=== PATIENT | female | born 1985 | race Caucasian/White ===

== ENCOUNTER 2021-04-28 20:34 | Emergency (ER) | payer MEDICAID, OTHER ==
[~2021-04-28] VITALS: Ht 157 cm; Wt 100.0 kg
[2021-04-28 20:56] LABS: BILIRUBIN,URINE NEGATIVE (NEGATIVE); CLARITY,URINE CLEAR; COLOR,URINE YELLOW; GLUCOSE, URINE (UA) NEGATIVE (NEGATIVE); KETONES,URINE NEGATIVE (NEGATIVE); LEUKOCYTE ESTERASE ,URINE NEGATIVE (NEGATIVE); NITRITE,URINE NEGATIVE (NEGATIVE); PH,URINE 6.5 (5-9); PROTEIN,URINE NEGATIVE (NEGATIVE)
[2021-04-28] MEDS ORDERED: ANTACID SUSP 30 ML UDC (MYLANTA) PO ONE (21:00)
[2021-04-28] MEDS ORDERED: ONDANSETRON 4 MG/2 ML (SDV) Z0FRAN IVP ONE (21:00)
[2021-04-28] MEDS ORDERED: LIDOCAINE 2% VISCOUS 15 ML UDC PO ONE (21:00)
[2021-04-28] MEDS ORDERED: FAMOTIDINE 20 MG (PEPCID) TABLET PO STA (21:00)
[2021-04-28] MEDS ORDERED: LACTATED RINGERS 1,000 ML IV STA (21:00)
--- NOTE | 2021-04-28 21:06 | ED Cough/URI ---
General Chief Complaint: Abdominal/GI Problems Stated Complaint: COUGH/CONGESTION ABD PAIN Source: patient Exam Limitations: no limitations History of Present Illness Date Seen by Provider: Apr 28, 2021 Time Seen by Provider: 20:45 Initial Comments The patient presents to the ER with her significant other and chief complaint that for 1 week she has had a cough, malaise, body aches. She has had decreased appetite but no sore throat diarrhea dysuria. The last 3 days she has had a little epigastric abdominal discomfort and nausea but no vomiting. She is taken some Tylenol and antacids which did give mild relief for a short time. She has no history of abdominal surgeries outside of a cholecystectomy. She just got off her menses 2 days ago. She is not on control. She has not been to any office to be tested for Covid or flu. She denies having a vaccine for COVID-19 or influenza. She has a history of psychiatric issues but no significant medical history. She smokes about half a pack of cigarettes per day and denies any history of lung disease. Allergies and Home Medications Allergies Coded Allergies: cephalexin (Unverified Allergy, Unknown, swelling all over, 04/28/21) Patient Home Medication List Home Medication List Reviewed: Yes Review of Systems Review of Systems Constitutional: No chills, No fever EENTM: No ear discharge, No hearing loss Respiratory: cough; No phlegm; short of breath; No wheezing Cardiovascular: No chest pain, No edema Gastrointestinal: abdominal pain; No constipation, No diarrhea, No dysphagia; nausea; No vomiting Genitourinary: No discharge, No dysuria Musculoskeletal: No back pain All Other Systems Reviewed Negative Unless Noted: Yes Past Edmxcjp-Wrkjju-Zncscw Hx Patient Social History Tobacco Use?: Yes Tobacco type used: Cigarettes Smoking Status: Current Everyday Smoker Smokeless Tobacco Frequency: Current Everyday User Use of E-Cig and/or Vaping dev: No Substance use?: No Physical Exam Vital Signs - First Documented 04/28/21 20:44 Temp 36.1 Pulse 82 Resp 18 B/P (MAP) 143/93 (110) Pulse Ox 98 O2 Delivery Room Air Capillary Refill : Height: '" Weight: lbs. oz. kg; BMI Method: General Appearance: WD/WN, no apparent distress Eyes: Bilateral Eye Normal Inspection, Bilateral Eye PERRL, Bilateral Eye EOMI HEENT: PERRL/EOMI, normal ENT inspection, TMs normal; No pharynx normal (Dry oral mucosa with mild retropharyngeal erythema but no exudate or tonsillar swelling or edema.) Neck: non-tender, full range of motion, supple, normal inspection, lymphadenopathy (R), lymphadenopathy (L) (Bilateral anterior cervical lymphadenopathy, shotty in nature) Respiratory: lungs clear, no respiratory distress, no accessory muscle use, other (Diminished breath sounds) Cardiovascular: normal peripheral pulses, regular rate, rhythm, no murmur Gastrointestinal: normal bowel sounds, soft, tenderness (Epigastric and left upper quadrant abdomen tenderness easily reproducible to light palpation.) Neurologic/Psychiatric: alert, normal mood/affect, oriented x 3 Skin: normal color, warm/dry Progress/Results/Core Measures Suspected Sepsis SIRS Temperature: Pulse: Respiratory Rate: Laboratory Tests 04/28/21 21:14: White Blood Count 9.5 Blood Pressure / Mean: Laboratory Tests 04/28/21 21:14: Creatinine 0.69, Platelet Count 285, Total Bilirubin 0.2 Results/Orders Lab Results Laboratory Tests Test 04/28/21 20:50 04/28/21 20:53 04/28/21 21:14 Range/Units Urine Color YELLOW Urine Clarity CLEAR Urine pH 6.5 5-9 Urine Specific [place] 1.020 1.016-1.022 Urine Protein NEGATIVE NEGATIVE Urine Glucose (UA) NEGATIVE NEGATIVE Urine Ketones NEGATIVE NEGATIVE Urine Nitrite NEGATIVE NEGATIVE Urine Bilirubin NEGATIVE NEGATIVE Urine Urobilinogen 0.2 < = 1.0 MG/DL Urine Leukocyte Esterase NEGATIVE NEGATIVE Urine RBC (Auto) NEGATIVE NEGATIVE Urine RBC NONE /HPF Urine WBC 0-2 /HPF Urine Crystals PRESENT H /LPF Urine Amorphous Sediment MOD GER URATES H /LPF Urine Bacteria TRACE /HPF Urine Casts NONE /LPF Urine Mucus NEGATIVE /LPF Urine Culture Indicated NO Influenza Type A Antigen NEGATIVE NEGATIVE Influenza Type B Antigen NEGATIVE NEGATIVE SARS-CoV-2 RNA (RT-PCR) Not Detected Negative White Blood Count 9.5 4.3-11.0 10^3/uL Red Blood Count 4.47 3.80-5.11 10^6/uL Hemoglobin 13.2 11.5-16.0 g/dL Hematocrit 39 35-52 % Mean Corpuscular Volume 87 80-99 fL Mean Corpuscular Hemoglobin 30 25-34 pg Mean Corpuscular Hemoglobin Concent 34 32-36 g/dL Red Cell Distribution Width 12.1 10.0-14.5 % Platelet Count 285 130-400 10^3/uL Mean Platelet Volume 9.8 9.0-12.2 fL Immature Granulocyte % (Auto) 0 % Neutrophils (%) (Auto) 46 42-75 % Lymphocytes (%) (Auto) 42 12-44 % Monocytes (%) (Auto) 8 0-12 % Eosinophils (%) (Auto) 3 0-10 % Basophils (%) (Auto) 1 0-10 % Neutrophils # (Auto) 4.4 1.8-7.8 10^3/uL Lymphocytes # (Auto) 4.0 1.0-4.0 10^3/uL Monocytes # (Auto) 0.7 0.0-1.0 10^3/uL Eosinophils # (Auto) 0.3 0.0-0.3 10^3/uL Basophils # (Auto) 0.1 0.0-0.1 10^3/uL Immature Granulocyte # (Auto) 0.0 0.0-0.1 10^3/uL Sodium Level 141 135-145 MMOL/L Potassium Level 3.7 3.6-5.0 MMOL/L Chloride Level 110 H 98-107 MMOL/L Carbon Dioxide Level 22 21-32 MMOL/L Anion Gap 9 5-14 MMOL/L Blood Urea Nitrogen 9 7-18 MG/DL Creatinine 0.69 0.60-1.30 MG/DL Estimat Glomerular Filtration Rate 97 BUN/Creatinine Ratio 13 Glucose Level 106 H 70-105 MG/DL Calcium Level 8.7 8.5-10.1 MG/DL Corrected Calcium 9.0 8.5-10.1 MG/DL Total Bilirubin 0.2 0.1-1.0 MG/DL Aspartate Amino Transf (AST/SGOT) 13 5-34 U/L Alanine Aminotransferase (ALT/SGPT) 24 0-55 U/L Alkaline Phosphatase 74 40-136 U/L C-Reactive Protein High Sensitivity 0.05 0.00-0.50 MG/DL Total Protein 6.3 L 6.4-8.2 GM/DL Albumin 3.6 3.2-4.5 GM/DL My Orders Orders - TOD SCHULER Ua Culture If Indicated (04/28/21 20:48) Urine Bedside (04/28/21 20:48) Covid 19 Inhouse Test (04/28/21 20:48) Ondansetron Injection (Zofran Injectio (04/28/21 21:00) Lidocaine 2% Viscous 15 Ml (Xylocaine Vi (04/28/21 21:00) Famotidine Tablet (Pepcid Tablet) (04/28/21 21:00) Antacid Suspension (Mylanta Suspension (04/28/21 21:00) Lactated Ringers (Lr 1000 Ml Iv Solution (04/28/21 21:00) Chest 1 View, Ap/Pa Only (04/28/21 21:00) Cbc With Automated Diff (04/28/21 21:00) Comprehensive Metabolic Panel (04/28/21 21:00) Hs C Reactive Protein (04/28/21 21:00) Influenza A & B Antigens (04/28/21 20:53) Coronavirus Sars-Cov-2 So 2018 (04/28/21 20:53) Medications Given in ED Current Medications Medications Dose Ordered Sig/Navdeep Route Start Time Stop Time Status Last Admin Dose Admin Al Hydrox/Mg Hydrox/Simethicone 30 ml ONCE ONCE PO 04/28/21 21:00 04/28/21 21:02 DC 04/28/21 21:07 30 ML Lidocaine HCl 15 ml ONCE ONCE PO 04/28/21 21:00 04/28/21 21:02 DC 04/28/21 21:07 15 ML Ondansetron HCl 8 mg ONCE ONCE IVP 04/28/21 21:00 04/28/21 21:02 DC 04/28/21 21:20 8 MG Vital Signs/I&O 04/28/21 20:44 Temp 36.1 Pulse 82 Resp 18 B/P (MAP) 143/93 (110) Pulse Ox 98 O2 Delivery Room Air Capillary Refill : Progress Note #1: Time: 21:03 Progress Note Aseptic vital signs per nursing. Plan to draw some labs give her a GI cocktail liter of fluids for her mild dehydration and test her for Covid and influenza. Chest x-ray she has some diminished lung sounds but no adventitious lung sounds. I suspect that she has a viral upper respiratory tract infection possibly making his way to gastroenteritis versus just gastritis. We will give her some Zofran and Pepcid. Progress Note #2: Time: 22:17 Progress Note The patient has experienced no material deterioration during her ER stay. She says her nausea is gone she is feeling better after the fluids. He is ready to go home. We have suggested she take some antacids and acid reducers as well as give her a prescription for some nausea medicines and wait this out as it is likely viral. Diagnostic Imaging Diagonstic Imaging: Xray Plain Films/CT/US/NM/MRI: chest Comments NAME: SAI [facility] REC#: [id number] PT STATUS: REG ER : 1985 PHYSICIAN: TOD SCHULER MD ADMIT DATE: 04/28/21/ER Draft Date of Exam:04/28/21 CHEST 1 VIEW, AP/PA ONLY CLINICAL INDICATION: Patient with cough. EXAM: Portable chest x-ray upright view. COMPARISON: None. FINDINGS: Lungs/pleura: Lungs are clear. There is no pneumothorax. There is no pleural effusion. Mediastinum: Unremarkable. Pulmonary vasculature: Unremarkable. Heart: Unremarkable. Bones/extrathoracic soft tissue: There are small degenerative spurs involving the thoracic spine. IMPRESSION: There is no radiographic evidence of acute cardiopulmonary process. Dictated on workstation # [id number] Dict: 04/28/212119 Trans: 04/28/212130 [facility] [id number] Interpreted by: FREEMAN CONNELL MD Electronically signed by: Reviewed: Reviewed by Me Departure Impression Primary Impression: Viral upper respiratory tract infection Additional Impressions: Gastroenteritis Gastritis Qualified Codes: K29.00 - Acute gastritis without bleeding Disposition: HOME, SELF-CARE Condition: Stable Departure-Patient Inst. Decision time for Depature: 22:18 Patient Instructions: Gastritis ED, Upper Respiratory Infection ED Add. Discharge Instructions: You likely have a virus that is leading to your cough, nasal congestion and nausea as well as stomach pain. Start taking Pepcid 20 mg twice a day until your stomach pain and symptoms resolved. This will reduce how much acid your stomach produces. If you have breakthrough episodes of stomach pain you can use Tums, Maalox, Mylanta, Gaviscon, Rolaids etc. as necessary. Fever or body aches can be treated with Tylenol 1000 mg every 8 hours as necessary. Avoid acid rich foods such as tomatoes, orange juice etc. If you have nausea or vomiting then take 1 tablet of Zofran under the tongue every 6 hours as necessary. All discharge instructions reviewed with patient and/or family. Voiced understanding. Scripts Famotidine (Pepcid) 20 Mg Tablet 20 MG PO BID for 14 Days, #28 TAB 0 Refills Prov: TOD SCHULER 04/28/21 Ondansetron (Ondansetron Odt) 4 Mg Tab.rapdis 4 MG PO Q6H PRN for NAUSEA/VOMITING, #8 TAB 0 Refills Prov: TOD SCHULER 04/28/21 TOD SCHULER Apr 28, 2021 21:06
[2021-04-28 21:07] LABS: BACTERIA,URINE TRACE /HPF; WBC,URINE 0-2 /HPF
[2021-04-28 21:08] LABS: AMORPHOUS SEDIMENT,UR MOD AMOR URATES /LPF
[2021-04-28 21:24] LABS: BASOPHILS # (AUTO) 0.1 10^3/uL (0.0-0.1); BASOPHILS % (AUTO) 1 % (0-10); EOSINOPHILS # (AUTO) 0.3 10^3/uL (0.0-0.3); EOSINOPHILS % (AUTO) 3 % (0-10); HEMATOCRIT 39 % (35-52); HEMOGLOBIN 13.2 g/dL (11.5-16.0); LYMPHOCYTES % (AUTO) 42 % (12-44); MEAN CORPUSCULAR HEMOGLOBIN 30 pg (25-34); MEAN CORPUSCULAR HGB CONC 34 g/dL (32-36); MEAN CORPUSCULAR VOLUME 87 fL (80-99); MEAN PLATELET VOLUME 9.8 fL (9.0-12.2); MONOCYTES # (AUTO) 0.7 10^3/uL (0.0-1.0); MONOCYTES % (AUTO) 8 % (0-12); NEUTROPHILS # (AUTO) 4.4 10^3/uL (1.8-7.8); NEUTROPHILS % (AUTO) 46 % (42-75); PLATELET COUNT 285 10^3/uL (130-400); WHITE BLOOD COUNT 9.5 10^3/uL (4.3-11.0)
--- NOTE | 2021-04-28 21:33 | Diagnostic Imaging Report ---
CLINICAL INDICATION: Patient with cough. EXAM: Portable chest x-ray upright view. COMPARISON: None. FINDINGS: Lungs/pleura: Lungs are clear. There is no pneumothorax. There is no pleural effusion. Mediastinum: Unremarkable. Pulmonary vasculature: Unremarkable. Heart: Unremarkable. Bones/extrathoracic soft tissue: There are small degenerative spurs involving the thoracic spine. IMPRESSION: There is no radiographic evidence of acute cardiopulmonary process. Dictated by: Dictated on workstation # [id number]
[2021-04-28 21:42] LABS: ALBUMIN 3.6 GM/DL (3.2-4.5); POTASSIUM 3.7 MMOL/L (3.6-5.0)
[2021-04-28 21:43] LABS: CALCIUM 8.7 MG/DL (8.5-10.1)
[2021-04-28 21:45] LABS: TOTAL PROTEIN 6.3 GM/DL (6.4-8.2)
[2021-04-28 21:46] LABS: BILIRUBIN,TOTAL 0.2 MG/DL (0.1-1.0)
[2021-04-28 21:48] LABS: CREATININE SERUM 0.69 MG/DL (0.60-1.30)
[2021-04-28] MEDS ORDERED: RX-ONDANSETRON 4 MG ODT (ZOFRAN) PPK #4 PO STA (22:16)
[2021-04-28] MEDS ORDERED: RX-FAMOTIDINE 20 MG (PEPCID) TAB PPK#2 PO STA (22:16)
[2021-04-28] MEDS ORDERED: FAMO-119 PO (22:20)
[2021-04-28] MEDS ORDERED: ONDA4TAB11 PO (22:20)
[2021-04-28 22:40] VITALS: BP 140/91
== END 2021-04-28 22:40 | disposition home or self-care (01) ==
LOC: ER 20:38
DX: J06.9 Acute upper respiratory infection, unspecified (principal); K52.9 Noninfective gastroenteritis and colitis, unspecified; K29.70 Gastritis, unspecified, without bleeding; F17.210 Nicotine dependence, cigarettes, uncomplicated; Z20.822 Contact with and (suspected) exposure to COVID-19
CPT/HCPCS: 36415; 71045; 80053; 81000; 84703; 85025; 86141; 87635; 87636; 87804

== ENCOUNTER 2021-11-16 19:17 | Emergency (ER) | payer MEDICAID ==
[~2021-11-16 19:17] MED LIST: FAMO-119 PO; ONDA4TAB11 PO
[2021-11-16 19:28] VITALS: BP 164/94
--- NOTE | 2021-11-16 19:40 | ED Abdominal Pain ---
General Chief Complaint: Abdominal/GI Problems Stated Complaint: LUMP IN ABD Nursing Triage Note: PT PRESENTS WITH C/O "LUMP" IN HER LOWER ABD. REPORTS SHE FIRST NOTICED THE LUMP THREE WEEKS AGO. REPORTS THE AREA IS TENDER TO THE TOUCH. DENIES N/V/D Source of Information: Patient Exam Limitations: No Limitations History of Present Illness Date Seen by Provider: Nov 16, 2021 Time Seen by Provider: 19:20 Initial Comments Patient to the ER by private conveyance with her significant other chief complaint that for the past several days she been noticing some pain and a defect in the middle of her abdomen below the umbilicus. She has no problems with bowel movements diarrhea fevers chills nausea vomiting. Allergies and Home Medications Allergies Coded Allergies: cephalexin (Unverified Allergy, Unknown, swelling all over, 04/28/21) Patient Home Medication List Home Medication List Reviewed: Yes Famotidine (Pepcid) 20 Mg Tablet, 20 MG PO BID Prescribed by: TOD SCHULER on 04/28/212219 Ondansetron (Ondansetron Odt) 4 Mg Tab.rapdis, 4 MG PO Q6H PRN for NAUSEA /VOMITING Prescribed by: TOD SCHULER on 04/28/212219 Review of Systems Review of Systems Constitutional: No chills, No diaphoresis EENTM: No Blurred Vision, No Double Vision Respiratory: Denies Cough, Denies Shortness of Air Cardiovascular: Denies Chest Pain, Denies Lightheadedness Gastrointestinal: Denies Constipated, Denies Vomiting Genitourinary: Denies Drainage, Denies Frequency All Other Systems Reviewed Negative Unless Noted: Yes Past Ymtxskw-Jbjsfb-Ubnswz Hx Patient Social History Tobacco Use?: Yes Smoking Status: Current Everyday Smoker Substance use?: No Alcohol Use?: Yes Alcohol Frequency: Once in a while Pt feels they are or have been: No Immunizations Up To Date Influenza Vaccine Up-to-Date: No; Not Current Past Medical History Surgery/Hospitalization HX: ANXIETY, INSOMNIA Last Menstrual Period: Nov 09, 2021 Physical Exam Vital Signs Vital Signs - First Documented 11/16/21 19:28 Pulse 91 Resp 18 B/P (MAP) 164/94 (117) Pulse Ox 98 Capillary Refill : Height/Weight/BMI Height: '" Weight: lbs. oz. kg; 40.00 BMI Method: General Appearance: WD/WN, no apparent distress HEENT: PERRL/EOMI, normal ENT inspection, pharynx normal Neck: full range of motion, supple, normal inspection Respiratory: lungs clear, normal breath sounds, no respiratory distress, no accessory muscle use Cardiovascular: normal peripheral pulses, regular rate, rhythm Peripheral Pulses: 2+ Radial Pulses (R), 2+ Radial Pulses (L) Gastrointestinal: normal bowel sounds, non tender, soft, no organomegaly, other Extremities: normal range of motion, non-tender, normal capillary refill Neurologic/Psychiatric: alert, normal mood/affect, oriented x 3 Progress/Results/Core Measures Results/Orders Vital Signs/I&O 11/16/21 19:28 Pulse 91 Resp 18 B/P (MAP) 164/94 (117) Pulse Ox 98 Blood Pressure Mean: 117 Progress Progress Note : Time: 19:38 Progress Note Patient apparently has a ventral hernia which is small, nonincarcerated and easily reducible. She has a little ventral diastases and will recommend her to general surgery. Nonacute surgical abdomen. Departure Impression Primary Impression: Ventral hernia without obstruction or gangrene Disposition: 01 HOME, SELF-CARE Condition: Stable Departure-Patient Inst. Decision time for Depature: 19:39 Referrals: ANGEL SPIVEY,LOCAL PHYSICIAN (PCP) Primary Care Physician Patient Instructions: Abdominal Hernia (DC), Hernia Repair (DC) Add. Discharge Instructions: You need to follow-up with a general surgeon to discuss appropriate management. Eat plenty of fiber and drink plenty of fluids. Return to the nearest ER if you are experiencing intractable pain, inability to pass a bowel movement or other worrisome symptoms. All discharge instructions reviewed with patient and/or family. Voiced understanding. Copy Copies To 1: ANGEL SPIVEY TITUS J Nov 16, 2021 19:40
== END 2021-11-16 19:45 | disposition home or self-care (01) ==
LOC: EDUNIT# 19:17 → ER 19:20
DX: K43.9 Ventral hernia without obstruction or gangrene (principal); Z28.310 Unvaccinated for COVID-19
CPT/HCPCS: 99281

== ENCOUNTER 2022-01-18 00:03 | Emergency (ER) | payer MEDICAID ==
[~2022-01-18] VITALS: Ht 155 cm; Wt 102.5 kg
[2022-01-18 00:06] VITALS: BP 147/90
[2022-01-18] MEDS ORDERED: LITH300T3 (00:15)
[2022-01-18] MEDS ORDERED: HYDR50TA76 (00:15)
[2022-01-18] MEDS ORDERED: SERT-414 (00:15)
[2022-01-18] MEDS ORDERED: GABA800T10 (00:15)
[2022-01-18] MEDS ORDERED: LURA40TA2 (00:15)
[2022-01-18] MEDS ORDERED: MIRT7.5T8 (00:15)
[2022-01-18] MEDS ORDERED: PRAZ1CAP2 (00:15)
[2022-01-18] MEDS ORDERED: BUSP15TA60 (00:15)
--- NOTE | 2022-01-18 00:24 | ED Lower Extremity ---
General Chief Complaint: Lower Extremity Stated Complaint: RT ANKLE PAIN,POPPED TUESDAY Source: patient History of Present Illness Date Seen by Provider: Jan 18, 2022 Time Seen by Provider: 00:14 Initial Comments PT ARRIVES ON HER OWN C/O RIGHT ANKLE PAIN AND SWELLING STATES SHE IN [place] ON Tuesday01/15/22, PUTTING GAS IN HER CAR, AND TRIPPED OVER THE GAS HOSE, AND TWISTED HER RIGHT ANKLE WENT TO [facility] AND HAD XRAYS DONE AND SUPA WRAP PLACED--WAS TOLD NOTHING WAS BROKEN. NO RX GIVEN STATES HER ANKLE STILL HURTS AND IS STILL SWOLLEN SO SHE CAME HERE TONIGHT PT HAS NOT PUT ICE ON IT OR ELEVATED IT TOOK 1 TYLENOL AT 2000 TONIGHT--NO RELIEF NO PARESTHESIAS OR MOTOR DEFICITS NO PRIOR INJURIES OR SURGERIES TO THIS FOOT/ANKLE PT IS HOMELESS, IS NORMALLY IN [place]. STATES SHE IS "JUST STAYING HERE IN [place] FOR NOW" LMP 01/06/22. NORMAL. NO CONTROL PCP: SEES SOMEONE IN [place] Allergies and Home Medications Allergies Coded Allergies: cephalexin (Unverified Allergy, Unknown, swelling all over, 04/28/21) Patient Home Medication List Home Medication List Reviewed: Yes Buspirone HCl (Buspirone HCl) 15 Mg Tablet, (Reported) Entered as Reported by: TIFFANY ROBLEDO on 01/18/2214 Last Action: New Order Gabapentin (Gabapentin) 800 Mg Tablet, (Reported) Entered as Reported by: TIFFANY ROBLEDO on 01/18/2214 Last Action: New Order Hydroxyzine HCl (Hydroxyzine HCl) 50 Mg Tablet, (Reported) Entered as Reported by: TIFFANY ROBLEDO on 01/18/2214 Last Action: New Order [place] Carbonate ([place] Carbonate) 300 Mg Tablet, (Reported) Entered as Reported by: TIFFANY ROBLEDO on 01/18/2214 Last Action: New Order Lurasidone HCl (Latuda) 40 Mg Tablet, (Reported) Entered as Reported by: TIFFANY ROBLEDO on 01/18/2214 Last Action: New Order Mirtazapine (Mirtazapine) 7.5 Mg Tablet, (Reported) Entered as Reported by: TIFFANY ROBLEDO on 01/18/2214 Last Action: New Order Naproxen (Naproxen) 500 Mg Tablet.dr, 500 MG PO BID Prescribed by: CHLOE OCHOA on 01/18/2227 Prazosin HCl (Prazosin HCl) 1 Mg Capsule, (Reported) Entered as Reported by: TIFFANY ROBLEDO on 01/18/2214 Last Action: New Order Sertraline HCl (Sertraline HCl) 100 Mg Tablet, (Reported) Entered as Reported by: TIFFANY ROBLEDO on 01/18/2214 Last Action: New Order Discontinued Medications Famotidine (Pepcid) 20 Mg Tablet, 20 MG PO BID Discontinued Reason: No Longer Taking Prescribed by: TOD SCHULER on 04/28/212219 Last Action: Discontinued Ondansetron (Ondansetron Odt) 4 Mg Tab.rapdis, 4 MG PO Q6H PRN for NAUSEA/VOMITING Discontinued Reason: No Longer Taking Prescribed by: TOD SCHULER on 04/28/212219 Last Action: Discontinued Review of Systems Constitutional: no symptoms reported LMP: Jan 06, 2022 Control/STD Prophylaxis: None Musculoskeletal: see HPI Skin: no symptoms reported Psychiatric/Neurological: No Symptoms Reported Past Wexgbeq-Kelxdj-Yulvui Hx Patient Social History Tobacco Use?: Yes Tobacco type used: Cigarettes Smoking Status: Current Everyday Smoker Substance use?: No Alcohol Use?: No Pt feels they are or have been: No Immunizations Up To Date First/Initial COVID19 Vaccinat: x1 Past Medical History Surgery/Hospitalization HX: ANXIETY, INSOMNIA, bipolar, borderline personality disorder. c-sect x2, dental, cholecystectomy Surgeries: Yes Section, Gallbladder Respiratory: No Cardiac: No Neurological: No : No Genitourinary: No Gastrointestinal: No Musculoskeletal: No Endocrine: No HEENT: Yes (DENTAL ISSUES) Cancer: No Psychosocial: Yes Anxiety, Bipolar, Personality Disorder, Depression Physical Exam Vital Signs Vital Signs - First Documented 01/18/22 00:06 Temp 37.2 Pulse 87 Resp 16 B/P (MAP) 147/90 (109) Pulse Ox 99 O2 Delivery Room Air Capillary Refill : Height, Weight, BMI Height: '" Weight: lbs. oz. kg; 40.00 BMI Method: General Appearance: WD/WN, no apparent distress, obese, other (HAIR DYED A DARK PURPLE COLOR) Legs: right leg normal inspection Knees: right knee normal inspection Ankles: right ankle bone tenderness, right ankle limited range of motion, right ankle pain, right ankle soft tissue tenderness, right ankle swelling, right ankle other (LATERAL MALLEOLUS. NO BRUISING. DISTAL MOTOR/SENSORY/VASCULAR INTACT. 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, no motor/sensory deficits, alert, normal mood/affect, oriented x 3 Skin: normal color, warm/dry, tattoos/piercings (TATTOOS) Procedures/Interventions Splinting and Joint Reduction : Pre-Proc Neuro Vasc Exam: normal Post-Proc Neuro Vasc Exam: normal Supa wrap: Yes Splints: Air Stirrup [place] Progress/Results/Core Measures Results/Orders My Orders Orders - CHLOE OCHOA DO Ankle, Right, 3 Views (01/18/22 00:13) Rx-Naproxen (Rx-Naprosyn) (01/18/22 00:29) Gel Ankle Brace (01/18/22 00:32) Vital Signs/I&O 01/18/22 00:06 Temp 37.2 Pulse 87 Resp 16 B/P (MAP) 147/90 (109) Pulse Ox 99 O2 Delivery Room Air Diagnostic Imaging Comments XRAYS RIGHT ANKLE--NO ACUTE PROCESS, PENDING RADIOLOGIST REVIEW Reviewed: Reviewed by Me Departure Impression Primary Impression: Right ankle sprain Disposition: 01 HOME, SELF-CARE Condition: Stable Departure-Patient Inst. Decision time for Depature: 00:25 Referrals: NO,LOCAL PHYSICIAN (PCP) Primary Care Physician TERRY MAGAÑA MD Patient Instructions: Acute Pain, Adult (DC), How to Use an Elastic Bandage, Splint Care ED Add. Discharge Instructions: SUPA WRAP NEEDED FOR PAIN AND SWELLING ANKLE SPLINT NEEDED FOR PAIN AND SWELLING ICE TO AREA AT 20 MINUTE INTERVALS ELEVATE FOOT MUCH POSSIBLE FOLLOW UP WITH DR. MAGAÑA, ORTHOPEDIC SURGEON, IN 1 WEEK FOR FURTHER CARE. All discharge instructions reviewed with patient and/or family. Voiced understanding. Scripts Naproxen (Naproxen) 500 Mg Tablet. 500 MG PO BID, #20 TAB Prov: CHLOE OCHOA DO 01/18/22 CHLOE OCHOA DO Jan 18, 2022 00:24
[2022-01-18] MEDS ORDERED: NAPR500T8 PO (00:28)
[2022-01-18] MEDS ORDERED: RX-NAPROXEN (NAPROSYN) 250 MG TAB PPK#4 PO STA (00:29)
--- NOTE | 2022-01-18 07:07 | Diagnostic Imaging Report ---
INDICATION: Injury, pain. EXAMINATION: Right ankle 01/18/2022. FINDINGS: 3 views of the ankle. FINDINGS: There is no evidence for an acute fracture or dislocation. The joint spaces are well maintained. There is no significant soft tissue swelling. IMPRESSION: No acute process. Of note not mentioned in body report there is a vague lucency at the base of the 5th metatarsal which has the appearance of likely nutrient foramen. If there is point tenderness 7-10 day follow-up recommended. Dictated by: Dictated on workstation # [id number]
== END 2022-01-18 00:34 | disposition home or self-care (01) ==
LOC: EDUNIT# 00:03 → ER 00:07
DX: S93.401A Sprain of unspecified ligament of right ankle, initial encounter (principal); F17.210 Nicotine dependence, cigarettes, uncomplicated; Z28.311 Partially vaccinated for COVID-19; X50.1XXA Overexertion from prolonged static or awkward postures, initial encounter
CPT/HCPCS: 73610; 99282; L4350

== ENCOUNTER 2022-06-01 00:30 | Emergency (ER) | payer MEDICAID ==
[~2022-06-01 00:30] MED LIST changes: +BUSP15TA60; +GABA800T10; +HYDR50TA76; +LITH300T3; +LURA40TA2; +MIRT7.5T8; +NAPR500T8 PO; +PRAZ1CAP2; +SERT-414
[2022-06-01] MEDS ORDERED: KETOROLAC 30 MG/ML VIAL IVP ONE (01:15)
[2022-06-01 01:46] LABS: MEAN PLATELET VOLUME 10.7 fL (9.0-12.2)
[2022-06-01 01:48] LABS: BASOPHILS # (AUTO) 0.1 10^3/uL (0.0-0.1); BASOPHILS % (AUTO) 1 % (0-10); EOSINOPHILS # (AUTO) 0.5 10^3/uL (0.0-0.3); EOSINOPHILS % (AUTO) 4 % (0-10); HEMATOCRIT 42 % (35-52); LYMPHOCYTES # (AUTO) 3.6 10^3/uL (1.0-4.0); LYMPHOCYTES % (AUTO) 31 % (12-44); MEAN CORPUSCULAR HEMOGLOBIN 29 pg (25-34); MEAN CORPUSCULAR HGB CONC 34 g/dL (32-36); MEAN CORPUSCULAR VOLUME 87 fL (80-99); MONOCYTES % (AUTO) 8 % (0-12); NEUTROPHILS # (AUTO) 6.7 10^3/uL (1.8-7.8); NEUTROPHILS % (AUTO) 56 % (42-75); PLATELET COUNT 266 10^3/uL (130-400); WHITE BLOOD COUNT 11.9 10^3/uL (4.3-11.0)
[2022-06-01 01:49] LABS: ALBUMIN 3.9 GM/DL (3.2-4.5)
[2022-06-01 01:50] LABS: POTASSIUM 4.7 MMOL/L (3.6-5.0)
[2022-06-01 01:51] LABS: PROTHROMBIN TIME PATIENT 13.2 SEC (12.2-14.7)
[2022-06-01 01:52] LABS: TOTAL PROTEIN 7.3 GM/DL (6.4-8.2)
[2022-06-01 01:54] LABS: BILIRUBIN,TOTAL 0.3 MG/DL (0.1-1.0)
[2022-06-01 01:56] LABS: CREATININE SERUM 0.68 MG/DL (0.60-1.30)
--- NOTE | 2022-06-01 02:34 | ED Chest Pain ---
General Chief Complaint: Chest Pain Stated Complaint: SOB,CP Nursing Triage Note: TO ED VIA [facility] WITH C/O SOA, CP, ANXIETY. HX ANXIETY, BIPOLAR. PER EMS PT HAS HAD A STRESSFUL DAY AND WAS TOLD BY HER MOTHER THAT SHE WASN'T GOING TO GIVE HER CHILDREN BACK TO HER. Source: patient Exam Limitations: no limitations Allergies and Home Medications Allergies Coded Allergies: cephalexin (Unverified Allergy, Unknown, swelling all over, 04/28/21) Patient Home Medication List Buspirone HCl (Buspirone HCl) 15 Mg Tablet, (Reported) Entered as Reported by: TIFFANY ROBLEDO on 01/18/2214 Gabapentin (Gabapentin) 800 Mg Tablet, (Reported) Entered as Reported by: TIFFANY ROBLEDO on 01/18/2214 Hydroxyzine HCl (Hydroxyzine HCl) 50 Mg Tablet, (Reported) Entered as Reported by: TIFFANY ROBLEDO on 01/18/2214 [place] Carbonate ([place] Carbonate) 300 Mg Tablet, (Reported) Entered as Reported by: TIFFANY ROBLEDO on 01/18/2214 Lurasidone HCl (Latuda) 40 Mg Tablet, (Reported) Entered as Reported by: TIFFANY ROBLEDO on 01/18/2214 Mirtazapine (Mirtazapine) 7.5 Mg Tablet, (Reported) Entered as Reported by: TIFFANY ROBLEDO on 01/18/2214 Naproxen (Naproxen) 500 Mg Tablet.dr, 500 MG PO BID Prescribed by: CHLOE OCHOA on 01/18/2227 Prazosin HCl (Prazosin HCl) 1 Mg Capsule, (Reported) Entered as Reported by: TIFFANY ROBLEDO on 01/18/2214 Sertraline HCl (Sertraline HCl) 100 Mg Tablet, (Reported) Entered as Reported by: TIFFANY ROBLEDO on 01/18/2214 Past Smznfgg-Wnjwiw-Oglqai Hx Patient Social History Tobacco Use?: Yes Smoking Status: Current Everyday Smoker Substance use?: No Alcohol Use?: No Immunizations Up To Date Influenza Vaccine Up-to-Date: No; Not Current First/Initial COVID19 Vaccinat: x1 Second COVID19 Vaccination Arcenio: x1 Third COVID19 Vaccination Date: x1 Past Medical History Surgery/Hospitalization HX: ANXIETY, INSOMNIA, bipolar, borderline personality disorder. c-sect x2, dental, cholecystectomy Surgeries: Yes Section, Gallbladder Respiratory: No Cardiac: No Neurological: No Genitourinary: No Gastrointestinal: No Musculoskeletal: No Endocrine: No HEENT: Yes (DENTAL ISSUES) Cancer: No Psychosocial: Yes Anxiety, Bipolar, Personality Disorder, Depression Physical Exam Vital Signs Vital Signs - First Documented 06/01/22 00:30 Temp 36.4 Pulse 77 Resp 16 B/P (MAP) 138/95 (109) Pulse Ox 99 O2 Delivery Room Air Capillary Refill : Less Than 3 Seconds Height, Weight, BMI Height: '" Weight: lbs. oz. kg; 42.00 BMI Method: Progress/Results/Core Measures Results/Orders Lab Results Laboratory Tests Test 06/01/22 00:40 Range/Units White Blood Count 11.9 H 4.3-11.0 10^3/uL Red Blood Count 4.78 3.80-5.11 10^6/uL Hemoglobin 14.0 11.5-16.0 g/dL Hematocrit 42 35-52 % Mean Corpuscular Volume 87 80-99 fL Mean Corpuscular Hemoglobin 29 25-34 pg Mean Corpuscular Hemoglobin Concent 34 32-36 g/dL Red Cell Distribution Width 12.2 10.0-14.5 % Platelet Count 266 130-400 10^3/uL Mean Platelet Volume 10.7 9.0-12.2 fL Immature Granulocyte % (Auto) 1 % Neutrophils (%) (Auto) 56 42-75 % Lymphocytes (%) (Auto) 31 12-44 % Monocytes (%) (Auto) 8 0-12 % Eosinophils (%) (Auto) 4 0-10 % Basophils (%) (Auto) 1 0-10 % Neutrophils # (Auto) 6.7 1.8-7.8 10^3/uL Lymphocytes # (Auto) 3.6 1.0-4.0 10^3/uL Monocytes # (Auto) 1.0 0.0-1.0 10^3/uL Eosinophils # (Auto) 0.5 H 0.0-0.3 10^3/uL Basophils # (Auto) 0.1 0.0-0.1 10^3/uL Immature Granulocyte # (Auto) 0.1 0.0-0.1 10^3/uL Percent Immature Platelet Fraction 3.8 0.0-7.6 % Prothrombin Time 13.2 12.2-14.7 SEC INR Comment 1.0 0.8-1.4 Activated Partial Thromboplast Time 25 24-35 SEC Sodium Level 136 135-145 MMOL/L Potassium Level 4.7 3.6-5.0 MMOL/L Chloride Level 109 H 98-107 MMOL/L Carbon Dioxide Level 15 L 21-32 MMOL/L Anion Gap 12 5-14 MMOL/L Blood Urea Nitrogen 10 7-18 MG/DL Creatinine 0.68 0.60-1.30 MG/DL Estimat Glomerular Filtration Rate 116 BUN/Creatinine Ratio 15 Glucose Level 101 70-105 MG/DL Calcium Level 9.0 8.5-10.1 MG/DL Corrected Calcium 9.1 8.5-10.1 MG/DL Magnesium Level 2.0 1.6-2.4 MG/DL Total Bilirubin 0.3 0.1-1.0 MG/DL Aspartate Amino Transf (AST/SGOT) 36 H 5-34 U/L Alanine Aminotransferase (ALT/SGPT) 70 H 0-55 U/L Alkaline Phosphatase 126 40-136 U/L Myoglobin 15.5 10.0-92.0 NG/ML Troponin I < 0.028 <0.028 NG/ML Total Protein 7.3 6.4-8.2 GM/DL Albumin 3.9 3.2-4.5 GM/DL Serum Test, Qualitative NEGATIVE NEGATIVE My Orders Orders - SAMEERA TERRAZAS MD Ekg Tracing (06/01/22 00:35) Cbc With Automated Diff (06/01/22 01:01) Magnesium (06/01/22 01:01) Chest 1 View, Ap/Pa Only (06/01/22 01:01) Comprehensive Metabolic Panel (06/01/22 01:01) Myoglobin Serum (06/01/22 01:01) Protime With Inr (06/01/22 01:01) Partial Thromboplastin Time (06/01/22 01:01) O2 (06/01/22 01:01) Monitor-Rhythm Ecg Trace Only (06/01/22 01:01) Ed Iv/Invasive Line Start (06/01/22 01:01) Troponin I Michael (06/01/22 01:01) Ketorolac Injection (Toradol Injection) (06/01/22 01:15) Hcg,Qualitative Serum (06/01/22 01:02) Medications Given in ED Current Medications Medications Dose Ordered Sig/Navdeep Route Start Time Stop Time Status Last Admin Dose Admin Ketorolac Tromethamine 30 mg ONCE ONCE IVP 06/01/22 01:15 06/01/22 01:16 DC 06/01/22 01:06 30 MG Vital Signs/I&O 06/01/22 06/01/22 00:30 02:37 Temp 36.4 36.2 Pulse 77 72 Resp 16 16 B/P (MAP) 138/95 (109) 119/77 Pulse Ox 99 100 O2 Delivery Room Air Room Air Blood Pressure Mean: 109 Initial ECG Impression Date: Jun 01, 2022 Initial ECG Impression Time: 00:38 Initial ECG Rate: 77 Initial ECG Rhythm: Normal Sinus Initial ECG Intervals: Normal Initial ECG Impression: Normal Comment Normal sinus rhythm with no ST elevation or depression. No abnormal intervals or axis deviation. Departure Impression Primary Impression: Chest wall pain Additional Impression: Anxiety Disposition: 01 HOME, SELF-CARE Condition: Improved Departure-Patient Inst. Decision time for Depature: 02:33 Referrals: NO,LOCAL PHYSICIAN (PCP/Family) Primary Care Physician Patient Instructions: Anxiety, Adult ED, Chest Pain, Adult ED Add. Discharge Instructions: For pain you may take ibuprofen up to 600 mg every 6 hours as needed and/or Tylenol (acetaminophen) up to 1000 mg every 6 hours. Call your primary care provider to arrange a follow-up appointment. Return to care if you have worsening symptoms despite following these instructions. All discharge instructions reviewed with patient and/or family. Voiced understanding. SAMEERA TERRAZAS MD Jun 01, 2022 02:34
[2022-06-01 02:37] VITALS: BP 119/77
--- NOTE | 2022-06-01 07:46 | Diagnostic Imaging Report ---
EXAM: CHEST 1 VIEW, AP/PA ONLY INDICATION: Chest pain. COMPARISON: 04/28/2021. FINDINGS: Normal heart size and central pulmonary vascularity. No focal pulmonary opacity. No pleural effusion or pneumothorax. No acute osseous findings. No significant change. IMPRESSION: No acute cardiopulmonary findings. Dictated by: Dictated on workstation # [id number]
== END 2022-06-01 02:38 | disposition home or self-care (01) ==
LOC: EDUNIT# 00:30 → ER 00:32
DX: R07.89 Other chest pain (principal); F41.9 Anxiety disorder, unspecified; F17.200 Nicotine dependence, unspecified, uncomplicated
CPT/HCPCS: 36415; 71045; 80053; 83735; 83874; 84484; 84703; 85025; 85610; 85730; 93005; 93041

== ENCOUNTER 2022-06-16 23:11 | Emergency (ER) | payer MEDICAID ==
--- NOTE | 2022-06-16 23:27 | ED Integumentary General ---
General Stated Complaint: LEFT LEG LAC Source: patient Exam Limitations: no limitations History of Present Illness Date Seen by Provider: Jun 16, 2022 Time Seen by Provider: 23:14 Initial Comments 37-year-old female presents to the emergency department today for cut to her right leg. She was using a box knife and cut herself in attempt to relieve stress. She has had cutting behaviors in the past. She states she called her psychiatrist after it happened who recommended she come to see if she needed stitches. She states explicitly that she was attempting to relieve stress and not trying to kill herself denies any suicidal or homicidal ideation. She has an appointment scheduled with her psychiatrist first thing in the morning at 8 45. According to her report he did not think that she needed admitted to the hospital for psychiatric reasons. She is unsure when her last tetanus shot was. He declines psychiatric screening this evening. Again she states she is not suicidal Allergies and Home Medications Allergies Coded Allergies: cephalexin (Unverified Allergy, Unknown, swelling all over, 04/28/21) Patient Home Medication List Home Medication List Reviewed: Yes Buspirone HCl (Buspirone HCl) 15 Mg Tablet, (Reported) Entered as Reported by: TIFFANY ROBLEDO on 01/18/2214 Gabapentin (Gabapentin) 800 Mg Tablet, (Reported) Entered as Reported by: TIFFANY ROBLEDO on 01/18/2214 Hydroxyzine HCl (Hydroxyzine HCl) 50 Mg Tablet, (Reported) Entered as Reported by: TIFFANY ROBLEDO on 01/18/2214 [place] Carbonate ([place] Carbonate) 300 Mg Tablet, (Reported) Entered as Reported by: TIFFANY ROBLEDO on 01/18/2214 Lurasidone HCl (Latuda) 40 Mg Tablet, (Reported) Entered as Reported by: TIFFANY ROBLEDO on 01/18/2214 Mirtazapine (Mirtazapine) 7.5 Mg Tablet, (Reported) Entered as Reported by: TIFFANY ROBLEDO on 01/18/2214 Naproxen (Naproxen) 500 Mg Tablet.dr, 500 MG PO BID Prescribed by: CHLOE OCHOA on 01/18/2227 Prazosin HCl (Prazosin HCl) 1 Mg Capsule, (Reported) Entered as Reported by: TIFFANY ROBLEDO on 01/18/2214 Sertraline HCl (Sertraline HCl) 100 Mg Tablet, (Reported) Entered as Reported by: TIFFANY ROBLEDO on 01/18/22 0015 Review of Systems Review of Systems Constitutional: no symptoms reported EENTM: no symptoms reported Respiratory: no symptoms reported Cardiovascular: no symptoms reported Gastrointestinal: no symptoms reported Genitourinary: no symptoms reported Musculoskeletal: no symptoms reported Skin: other (cut on her right leg) Psychiatric/Neurological: No Symptoms Reported Past Sksskhj-Hlwzdy-Bidacr Hx Patient Social History Tobacco Use?: No Use of E-Cig and/or Vaping dev: No Substance use?: No Alcohol Use?: No Immunizations Up To Date First/Initial COVID19 Vaccinat: x1 Second COVID19 Vaccination Arcenio: x1 Third COVID19 Vaccination Date: x1 Past Medical History Surgery/Hospitalization HX: ANXIETY, INSOMNIA, bipolar, borderline personality disorder. c-sect x2, dental, cholecystectomy Surgeries: Yes Section, Gallbladder Respiratory: No Cardiac: No Neurological: No Genitourinary: No Gastrointestinal: No Musculoskeletal: No Endocrine: No HEENT: Yes (DENTAL ISSUES) Cancer: No Psychosocial: Yes Anxiety, Bipolar, Personality Disorder, Depression Family Medical History Reviewed Nursing Family Hx No Pertinent Family Hx Physical Exam Vital Signs Capillary Refill : General Appearance: WD/WN, no apparent distress HEENT: normal ENT inspection, pharynx normal Neck: non-tender, supple, normal inspection Cardiovascular: regular rate, rhythm, no murmur Respiratory: chest non-tender, normal breath sounds, no respiratory distress Gastrointestinal: normal bowel sounds, non tender, soft, no organomegaly Extremities: normal range of motion, non-tender, normal capillary refill Skin: other (Very superficial To the anterior surface of her right lower leg. This is barely through the epidermis. No tenderness involvement. Neurovascular motor and sensory intact.) Departure Impression Primary Impression: Leg laceration Qualified Codes: S81.811A - Laceration without foreign body, right lower leg, initial encounter Disposition: 01 HOME, SELF-CARE Condition: Stable Departure-Patient Inst. Referrals: NO,LOCAL PHYSICIAN (PCP/Family) Primary Care Physician Patient Instructions: Wound Care (DC) Add. Discharge Instructions: Return to the emergency department for any severe concerns. Keep the area clean. Follow-up with your psychiatrist tomorrow at 845 as scheduled. Return to the emergency department for any thoughts of harming yourself CHARISSA THAPA DO Jun 16, 2022 23:27
[2022-06-16] MEDS ORDERED: TETANUS,DIPTH,PERTUSS P/F (BOOSTRIX) 0.5 ML VIAL IM ONE (23:30)
[2022-06-16 23:39] VITALS: BP 178/102
== END 2022-06-16 23:39 | disposition home or self-care (01) ==
LOC: EDUNIT# 23:11 → ER 23:15
DX: S81.811A Laceration without foreign body, right lower leg, initial encounter (principal); Z28.310 Unvaccinated for COVID-19; W26.0XXA Contact with knife, initial encounter
CPT/HCPCS: 90715; 99284

== ENCOUNTER 2022-07-07 01:37 | Emergency (ER) | payer MEDICAID ==
[~2022-07-07] VITALS: Ht 154 cm; Wt 99.7 kg
[2022-07-07 01:54] LABS: BASOPHILS # (AUTO) 0.1 10^3/uL (0.0-0.1); BASOPHILS % (AUTO) 1 % (0-10); EOSINOPHILS # (AUTO) 0.5 10^3/uL (0.0-0.3); EOSINOPHILS % (AUTO) 5 % (0-10); HEMATOCRIT 41 % (35-52); HEMOGLOBIN 14.2 g/dL (11.5-16.0); LYMPHOCYTES # (AUTO) 3.2 10^3/uL (1.0-4.0); LYMPHOCYTES % (AUTO) 32 % (12-44); MEAN CORPUSCULAR HEMOGLOBIN 30 pg (25-34); MEAN CORPUSCULAR HGB CONC 35 g/dL (32-36); MEAN CORPUSCULAR VOLUME 85 fL (80-99); MONOCYTES # (AUTO) 0.8 10^3/uL (0.0-1.0); MONOCYTES % (AUTO) 9 % (0-12); NEUTROPHILS # (AUTO) 5.2 10^3/uL (1.8-7.8); NEUTROPHILS % (AUTO) 53 % (42-75); PLATELET COUNT 367 10^3/uL (130-400); WHITE BLOOD COUNT 9.8 10^3/uL (4.3-11.0)
[2022-07-07 02:17] LABS: CHLORIDE 107 MMOL/L (98-107); POTASSIUM 3.3 MMOL/L (3.6-5.0); SODIUM 137 MMOL/L (135-145)
[2022-07-07 02:18] LABS: CALCIUM 9.2 MG/DL (8.5-10.1)
[2022-07-07 02:19] LABS: GLUCOSE 107 MG/DL (70-105)
[2022-07-07 02:20] LABS: CARBON DIOXIDE 17 MMOL/L (21-32)
[2022-07-07 02:21] LABS: BILIRUBIN,TOTAL 0.3 MG/DL (0.1-1.0)
[2022-07-07 02:23] LABS: ALKALINE PHOSPHATASE 99 U/L (40-136); CREATININE SERUM 0.69 MG/DL (0.60-1.30); GFR ESTIMATED 116; PROTHROMBIN TIME PATIENT 13.3 SEC (12.2-14.7)
[2022-07-07 02:24] LABS: BUN/CREATININE RATIO 10
[2022-07-07 02:26] LABS: ALANINE AMINOTRANSFERASE 30 U/L (0-55); MAGNESIUM 1.8 MG/DL (1.6-2.4)
[2022-07-07 02:27] LABS: CREATINE KINASE 38 U/L (29-168)
[2022-07-07 02:33] LABS: CREATINE KINASE MB 0.4 NG/ML (<6.6)
--- NOTE | 2022-07-07 02:40 | ED General ---
General Chief Complaint: Chest Pain Stated Complaint: CP Source of Information: Patient, EMS Allergies and Home Medications Allergies Coded Allergies: adhesive (Verified Allergy, Unknown, 06/28/22) cephalexin (Unverified Allergy, Unknown, swelling all over, 04/28/21) latex (Verified Allergy, Unknown, 06/28/22) Patient Home Medication List Buspirone HCl (Buspirone HCl) 15 Mg Tablet, (Reported) Entered as Reported by: TIFFANY ROBLEDO on 01/18/2214 Gabapentin (Gabapentin) 800 Mg Tablet, (Reported) Entered as Reported by: TIFFANY ROBLEDO on 01/18/2214 Hydroxyzine HCl (Hydroxyzine HCl) 50 Mg Tablet, (Reported) Entered as Reported by: TIFFANY ROBLEDO on 01/18/2214 [place] Carbonate ([place] Carbonate) 300 Mg Tablet, (Reported) Entered as Reported by: TIFFANY ROBLEDO on 01/18/2214 Lurasidone HCl (Latuda) 40 Mg Tablet, (Reported) Entered as Reported by: TIFFANY ROBLEDO on 01/18/2214 Mirtazapine (Mirtazapine) 7.5 Mg Tablet, (Reported) Entered as Reported by: TIFFANY ROBLEDO on 01/18/2214 Naproxen (Naproxen) 500 Mg Tablet.dr, 500 MG PO BID Prescribed by: CHLOE OCHOA on 01/18/2227 Prazosin HCl (Prazosin HCl) 1 Mg Capsule, (Reported) Entered as Reported by: TIFFANY ROBLEDO on 01/18/2214 Sertraline HCl (Sertraline HCl) 100 Mg Tablet, (Reported) Entered as Reported by: TIFFANY ROBLEDO on 01/18/2214 Past Xmwajxe-Frfrwt-Oxfmni Hx Immunizations Up To Date First/Initial COVID19 Vaccinat: x1 Second COVID19 Vaccination Arcenio: x1 Third COVID19 Vaccination Date: x1 Past Medical History Surgery/Hospitalization HX: ANXIETY, INSOMNIA, bipolar, borderline personality disorder. c-sect x2, dental, cholecystectomy Surgeries: Yes Section, Gallbladder Respiratory: No Cardiac: No Neurological: No Genitourinary: No Gastrointestinal: No Musculoskeletal: No Endocrine: No HEENT: Yes (DENTAL ISSUES) Cancer: No Psychosocial: Yes Anxiety, Bipolar, Personality Disorder, Depression Family Medical History No Pertinent Family Hx Physical Exam Vital Signs Capillary Refill : Height, Weight, BMI Height: '" Weight: lbs. oz. kg; 42.00 BMI Method: Progress/Results/Core Measures Suspected Sepsis SIRS Temperature: Pulse: Respiratory Rate: Laboratory Tests 07/07/22 01:45: White Blood Count 9.8 Blood Pressure / Mean: Laboratory Tests 07/07/22 01:45: Creatinine 0.69, INR Comment 1.0, Platelet Count 367, Total Bilirubin 0.3 Results/Orders Lab Results Laboratory Tests Test 07/07/22 01:45 Range/Units White Blood Count 9.8 4.3-11.0 10^3/uL Red Blood Count 4.81 3.80-5.11 10^6/uL Hemoglobin 14.2 11.5-16.0 g/dL Hematocrit 41 35-52 % Mean Corpuscular Volume 85 80-99 fL Mean Corpuscular Hemoglobin 30 25-34 pg Mean Corpuscular Hemoglobin Concent 35 32-36 g/dL Red Cell Distribution Width 12.4 10.0-14.5 % Platelet Count 367 130-400 10^3/uL Mean Platelet Volume 10.0 9.0-12.2 fL Immature Granulocyte % (Auto) 0 % Neutrophils (%) (Auto) 53 42-75 % Lymphocytes (%) (Auto) 32 12-44 % Monocytes (%) (Auto) 9 0-12 % Eosinophils (%) (Auto) 5 0-10 % Basophils (%) (Auto) 1 0-10 % Neutrophils # (Auto) 5.2 1.8-7.8 10^3/uL Lymphocytes # (Auto) 3.2 1.0-4.0 10^3/uL Monocytes # (Auto) 0.8 0.0-1.0 10^3/uL Eosinophils # (Auto) 0.5 H 0.0-0.3 10^3/uL Basophils # (Auto) 0.1 0.0-0.1 10^3/uL Immature Granulocyte # (Auto) 0.0 0.0-0.1 10^3/uL Prothrombin Time 13.3 12.2-14.7 SEC INR Comment 1.0 0.8-1.4 Activated Partial Thromboplast Time 25 24-35 SEC Sodium Level 137 135-145 MMOL/L Potassium Level 3.3 L 3.6-5.0 MMOL/L Chloride Level 107 98-107 MMOL/L Carbon Dioxide Level 17 L 21-32 MMOL/L Anion Gap 13 5-14 MMOL/L Blood Urea Nitrogen 7 7-18 MG/DL Creatinine 0.69 0.60-1.30 MG/DL Estimat Glomerular Filtration Rate 116 BUN/Creatinine Ratio 10 Glucose Level 107 H 70-105 MG/DL Calcium Level 9.2 8.5-10.1 MG/DL Corrected Calcium 9.2 8.5-10.1 MG/DL Magnesium Level 1.8 1.6-2.4 MG/DL Total Bilirubin 0.3 0.1-1.0 MG/DL Aspartate Amino Transf (AST/SGOT) 19 5-34 U/L Alanine Aminotransferase (ALT/SGPT) 30 0-55 U/L Alkaline Phosphatase 99 40-136 U/L Total Creatine Kinase 38 29-168 U/L Creatine Kinase MB 0.4 <6.6 NG/ML Troponin I < 0.028 <0.028 NG/ML Total Protein 7.0 6.4-8.2 GM/DL Albumin 4.0 3.2-4.5 GM/DL Serum Test, Qualitative NEGATIVE NEGATIVE Acetaminophen Level < 10 L 10-30 UG/ML Serum Alcohol < 10 <10 MG/DL My Orders Orders - CHLOE OCHOA DO Ekg Tracing (07/07/22:42) Ed Iv/Invasive Line Start (07/07/2243) Monitor-Rhythm Ecg Trace Only (07/07/22:43) Acetaminophen (07/07/22:43) Alcohol (07/07/22:43) Cbc With Automated Diff (07/07/22) Comprehensive Metabolic Panel (07/07/22) Creatine Kinase (07/07/22:43) Creatine Kinase Mb (07/07/22:43) Drug Screen Stat (Urine) (07/07/22:43) Hcg,Qualitative Serum (07/07/22) Magnesium (07/07/22:43) Protime With Inr (07/07/22) Partial Thromboplastin Time (07/07/22:43) Ua Culture If Indicated (07/07/22:43) Troponin I Michael (07/07/22:43) Chest 1 View, Ap/Pa Only (3/15/23 01:43) Urine Bedside (07/07/22 02:00) Vital Signs/I&O Capillary Refill : Departure Impression Primary Impression: Anxiety Additional Impressions: Chest wall pain Marijuana use Homelessness Disposition: 01 HOME, SELF-CARE Condition: Stable Departure-Patient Inst. Decision time for Depature: 02:37 Referrals: NO,LOCAL PHYSICIAN (PCP) Primary Care Physician Patient Instructions: Anxiety, Adult (DC), Chest Pain, Costochondritis Add. Discharge Instructions: CONTINUE YOUR MEDICATIONS PRESCRIBED TYLENOL 1 GRAM AND MOTRIN 800 MG 4 TIMES A DAY NEEDED FOR PAIN NO DRUGS OR ALCOHOL, INCLUDING NO MARIJUANA FOLLOW UP WITH YOUR REGULAR DR AND WITH MENTAL HEALTH THIS WEEK FOR FURTHER CARE All discharge instructions reviewed with patient and/or family. Voiced understanding. CHLOE OCHOA DO Jul 07, 2022 02:40
[2022-07-07] MEDS ORDERED: KETOROLAC 30 MG/ML VIAL IVP ONE (02:45)
[2022-07-07 03:07] VITALS: BP 121/68
--- NOTE | 2022-07-07 07:55 | Diagnostic Imaging Report ---
EXAMINATION: Chest 1 view HISTORY: Chest pain. COMPARISON: 06/01/2022. FINDINGS: The lung volumes are normal. No focal consolidation is seen. No large pleural effusion or pneumothorax is seen. The cardiomediastinal silhouette is normal in size and contour. No acute osseous abnormality is seen. IMPRESSION: 1. No acute pleuroparenchymal process. Dictated by: Dictated on workstation # [id number]
== END 2022-07-07 03:07 | disposition home or self-care (01) ==
LOC: EDUNIT# 01:37 → ER 01:41
DX: F12.980 Cannabis use, unspecified with anxiety disorder (principal); R07.89 Other chest pain; Z59.00 Homelessness unspecified; Z91.040 Latex allergy status
CPT/HCPCS: 36415; 71045; 80053; 80320; 80329; 82550; 82553; 83735; 84484; 84703; 85025; 85610; 85730; 93005; 93041

== ENCOUNTER 2022-07-28 16:34 | Emergency (ER) | payer MEDICAID ==
[~2022-07-28] VITALS: Ht 154.8 cm; Wt 97.5 kg
--- NOTE | 2022-07-28 16:58 | ED Cardiac General ---
History of Present Illness General Chief Complaint: Cardiac/General Problems Stated Complaint: HEART RACING RIGHT FLANK PAIN Nursing Triage Note: PT AMB TO [facility] 6 WITH COMPLAINT OF RACING HEART AND STOMACH PAIN. STATES STOMACH PAIN STARTED TUESDAY AND HER RACING HEART STARTED TODAY. STARTED NEW ANTIBIOITCS FOR INFECTION IN STOMACH ON TUESDAY. Source: patient Exam Limitations: no limitations History of Present Illness Date Seen by Provider: Jul 28, 2022 Time Seen by Provider: 16:55 Initial Comments Patient is a 37-year-old female who presents to the ED for abdominal pain and fast heart rate. Patient states she has had this right-sided abdominal pain right upper quadrant since Tuesday. Described as sharp without radiation and intermittent. Symptoms started after she started taking clear the Clarithrom ycin and amoxicillin. Diagnosed with H. pylori last Tuesday with a biopsy in [place]. Patient states 30 minutes before arrival started having fast heart rate but that improved shortly after. She reports heart palpitations without any specific chest pain or shortness of breath. No known cardiac history history excessive caffeine use or energy drinks. Patient is complaining of 8 out of 10 abdominal pain at this time. Denies of any recent travels. She denies cough, fever, vomiting. Few episodes of water diarrhea since starting the antibiotics. History of cholecystectomy. Allergies and Home Medications Allergies Coded Allergies: adhesive (Verified Allergy, Unknown, 06/28/22) cephalexin (Unverified Allergy, Unknown, swelling all over, 04/28/21) latex (Verified Allergy, Unknown, 06/28/22) Patient Home Medication List Home Medication List Reviewed: Yes Buspirone HCl (Buspirone HCl) 15 Mg Tablet, (Reported) Entered as Reported by: TIFFANY ROBLEDO on 01/18/2214 Gabapentin (Gabapentin) 800 Mg Tablet, (Reported) Entered as Reported by: TIFFANY ROBLEDO on 01/18/2214 Hydroxyzine HCl (Hydroxyzine HCl) 50 Mg Tablet, (Reported) Entered as Reported by: TIFFANY ROBLEDO on 01/18/2214 Lolita Carbonate (Lolita Carbonate) 300 Mg Tablet, (Reported) Entered as Reported by: TIFFANY ROBLEDO on 01/18/2214 Lurasidone HCl (Latuda) 40 Mg Tablet, (Reported) Entered as Reported by: TIFFANY ROBLEDO on 01/18/2214 Mirtazapine (Mirtazapine) 7.5 Mg Tablet, (Reported) Entered as Reported by: TIFFANY ROBLEDO on 01/18/2214 Naproxen (Naproxen) 500 Mg Tablet.dr, 500 MG PO BID Prescribed by: CHLOE OCHOA on 01/18/2227 Prazosin HCl (Prazosin HCl) 1 Mg Capsule, (Reported) Entered as Reported by: TIFFANY ROBLEDO on 01/18/2214 Sertraline HCl (Sertraline HCl) 100 Mg Tablet, (Reported) Entered as Reported by: TIFFANY ROBLEDO on 01/18/2214 Review of Systems Review of Systems Constitutional: No chills, No diaphoresis, No malaise, No weakness EENTM: No Double Vision, No Eye Pain Respiratory: Denies Cough, Denies Orthopnea Cardiovascular: Denies Chest Pain, Denies Edema, Denies Irregular Heart Rate; Palpitations Gastrointestinal: Abdominal Pain, Diarrhea; Denies Nausea, Denies Vomiting Genitourinary: Denies Burning, Denies Discharge, Denies Drainage, Denies Frequency Musculoskeletal: No back pain, No joint pain Skin: No change in color, No change in hair/nails Psychiatric/Neurological: Denies Anxiety, Denies Depressed All Other Systems Reviewed Negative Unless Noted: Yes Past Irmfsag-Ogvjgc-Yajsrq Hx Patient Social History Tobacco Use?: Yes Tobacco type used: Cigarettes Smoking Status: Current Everyday Smoker Use of E-Cig and/or Vaping dev: No Substance use?: Yes Additional substance use comme: DELTA 9 Alcohol Use?: No Pt feels they are or have been: No Immunizations Up To Date First/Initial COVID19 Vaccinat: x1 Second COVID19 Vaccination Arcenio: x1 Third COVID19 Vaccination Date: x1 Past Medical History Surgery/Hospitalization HX: ANXIETY, INSOMNIA, bipolar, borderline personality disorder. c-sect x2, dental, cholecystectomy Surgeries: Yes Section, Gallbladder Respiratory: No Cardiac: No Neurological: No Genitourinary: No Gastrointestinal: No Musculoskeletal: No Endocrine: No HEENT: Yes (DENTAL ISSUES) Cancer: No Psychosocial: Yes Anxiety, Bipolar, Personality Disorder, Depression Family Medical History No Pertinent Family Hx Physical Exam Vital Signs Vital Signs - First Documented 07/28/22 16:40 Temp 36.5 Pulse 86 Resp 16 B/P (MAP) 148/102 (117) Pulse Ox 99 O2 Delivery Room Air Capillary Refill : Height, Weight, BMI Height: '" Weight: lbs. oz. kg; 40.00 BMI Method: General Appearance: No Apparent Distress, WD/WN HEENT: PERRL/EOMI, TMs Normal, Normal ENT Inspection, Pharynx Normal Neck: Full Range of Motion, Normal Inspection, Non Tender, Supple Respiratory: Chest Non Tender, Lungs Clear, Normal Breath Sounds, No Accessory Muscle Use, No Respiratory Distress Cardiovascular: Regular Rate, Rhythm, No Edema, No Gallop, No JVD Gastrointestinal: Normal Bowel Sounds, No Organomegaly, No Pulsatile Mass, Soft, Tenderness (Right upper quadrant tenderness. Normal bowel sounds are help) Extremity: Normal Capillary Refill, Normal Inspection, Normal Range of Motion, Non Tender Neurologic/Psychiatric: Alert, Oriented x3, No Motor/Sensory Deficits, Normal Mood/Affect, medical specialist II-XII Norm as Tested Skin: Normal Color, Warm/Dry Progress/Results/Core Measures Results/Orders Lab Results Laboratory Tests Test 07/28/22 17:50 07/28/22 18:09 Range/Units White Blood Count 8.4 4.3-11.0 10^3/uL Red Blood Count 4.67 3.80-5.11 10^6/uL Hemoglobin 13.7 11.5-16.0 g/dL Hematocrit 40 35-52 % Mean Corpuscular Volume 86 80-99 fL Mean Corpuscular Hemoglobin 29 25-34 pg Mean Corpuscular Hemoglobin Concent 34 32-36 g/dL Red Cell Distribution Width 12.2 10.0-14.5 % Platelet Count 266 130-400 10^3/uL Mean Platelet Volume 9.9 9.0-12.2 fL Immature Granulocyte % (Auto) 1 % Neutrophils (%) (Auto) 58 42-75 % Lymphocytes (%) (Auto) 25 12-44 % Monocytes (%) (Auto) 10 0-12 % Eosinophils (%) (Auto) 6 0-10 % Basophils (%) (Auto) 1 0-10 % Neutrophils # (Auto) 4.9 1.8-7.8 10^3/uL Lymphocytes # (Auto) 2.1 1.0-4.0 10^3/uL Monocytes # (Auto) 0.8 0.0-1.0 10^3/uL Eosinophils # (Auto) 0.5 H 0.0-0.3 10^3/uL Basophils # (Auto) 0.1 0.0-0.1 10^3/uL Immature Granulocyte # (Auto) 0.0 0.0-0.1 10^3/uL Urine Color YELLOW Urine Clarity SL CLOUDY Urine pH 7.0 5-9 Urine Specific [place] 1.020 1.016-1.022 Urine Protein NEGATIVE NEGATIVE Urine Glucose (UA) NEGATIVE NEGATIVE Urine Ketones NEGATIVE NEGATIVE Urine Nitrite NEGATIVE NEGATIVE Urine Bilirubin NEGATIVE NEGATIVE Urine Urobilinogen 1.0 < = 1.0 MG/DL Urine Leukocyte Esterase 1+ H NEGATIVE Urine RBC (Auto) NEGATIVE NEGATIVE Urine RBC 0-2 /HPF Urine WBC 5-10 H /HPF Urine Squamous Epithelial Cells 25-50 H /HPF Urine Crystals PRESENT H /LPF Urine Amorphous Sediment FEW GER URATES H /LPF Urine Bacteria TRACE /HPF Urine Casts NONE /LPF Urine Mucus NEGATIVE /LPF Urine Yeast RARE /HPF Urine Culture Indicated YES Sodium Level 138 135-145 MMOL/L Potassium Level 3.7 3.6-5.0 MMOL/L Chloride Level 109 H 98-107 MMOL/L Carbon Dioxide Level 20 L 21-32 MMOL/L Anion Gap 9 5-14 MMOL/L Blood Urea Nitrogen 10 7-18 MG/DL Creatinine 0.64 0.60-1.30 MG/DL Estimat Glomerular Filtration Rate 118 BUN/Creatinine Ratio 16 Glucose Level 113 H 70-105 MG/DL Calcium Level 8.7 8.5-10.1 MG/DL Corrected Calcium 8.8 8.5-10.1 MG/DL Total Bilirubin 0.3 0.1-1.0 MG/DL Aspartate Amino Transf (AST/SGOT) 19 5-34 U/L Alanine Aminotransferase (ALT/SGPT) 23 0-55 U/L Alkaline Phosphatase 86 40-136 U/L Troponin I < 0.028 <0.028 NG/ML Total Protein 6.8 6.4-8.2 GM/DL Albumin 3.9 3.2-4.5 GM/DL Lipase 24 8-78 U/L Urine Test NEGATIVE NEGATIVE My Orders Orders - JANNETH ESPINOZA PA Ekg Tracing (07/28/22 16:53) Troponin I [place] (07/28/22 16:53) Chest 1 View, Ap/Pa Only (07/28/22 16:53) Cbc With Automated Diff (07/28/22 16:53) Comprehensive Metabolic Panel (07/28/22 16:53) Lipase (07/28/22 16:53) Urinalysis (07/28/22 16:53) Hcg,Qualitative Urine (07/28/22 17:55) Ketorolac Injection (Toradol Injection) (07/28/22 18:00) Urine Culture (07/28/22 17:50) Abdomen, Flat & Upright/Decub (07/28/22 18:35) Vital Signs/I&O 07/28/22 07/28/22 16:40 19:29 Temp 36.5 Pulse 86 91 Resp 16 24 B/P (MAP) 148/102 (117) 102/67 Pulse Ox 99 97 O2 Delivery Room Air Room Air Blood Pressure Mean: 117 Comment Sinus rhythm, 81 bpm, QRS duration 85 MS, QTc 424 MS Departure Communication (PCP) Reviewed previous ER visits, H&P, lab testing. Patient with heart palpitations right before arrival. The symptoms improved. Due to her presentation EKG troponin. She was not tachycardic or hypoxic or had chest pain during this episode. No known cardiac history. Low heart score. EKG showed normal sinus rhythm without evidence of ST elevation or pression. Nonischemic changes. Chest x-ray was negative for pneumonia, pneumothorax, mediastinal widening. She also reports right sided upper abdominal pain. Diagnosed with H. pylori last week in [place]. Currently on antibiotics and omeprazole. She does have a history of cholecystectomy not concerning for cholecystitis. Due to location of pain CBC, CMP and lipase was ordered. CBC, CMP grossly unremarkable. Lipase normal. Urinalysis questionable UTI with +1 leukocytes and white blood cells. She has no current urinary symptoms. Did note squamous cell likely contamination. Will not treat at this time until results from urine culture. Vital signs stable. Was given Toradol with improvement of pain. Abdominal x- ray was ordered secondary to recent procedure rule out perfect bowel. Abdominal x-ray was negative for any free air or obstruction. Stool noted in the colon. Discussed 2 to 3 days of laxatives to help regulate her stools. She denies history of constipation. Will call if positive urine culture. Return back to ED if symptoms worsen such as abdominal pain, developing chest pain, vomiting, fever. Patient does not appear in acute distress. No surgical abdomen Impression Primary Impression: Abdominal pain Disposition: 01 HOME, SELF-CARE Condition: Stable Departure-Patient Inst. Decision time for Depature: 19:27 Referrals: [facility] [place],LOCAL PHYSICIAN (PCP) Primary Care Physician Patient Instructions: Abdominal Pain, Adult ED Add. Discharge Instructions: May consider laxatives for the next 2 to 3 days with several bowel movements to see if this resolves the pain. If any worsening pain, fever vomiting to return back to ED. Continue with your antibiotics All discharge instructions reviewed with patient and/or family. Voiced understanding. JANNETH ESPINOZA Jul 28, 2022 16:58
--- NOTE | 2022-07-28 17:20 | Diagnostic Imaging Report ---
INDICATION: Chest pain. EXAMINATION: Chest, 07/28/2022. COMPARISON: 07/07/2022. FINDINGS: Single view chest. Heart and pulmonary vasculature are normal. Lungs and pleural spaces are clear. No infiltrates or effusions. No pneumothorax. IMPRESSION: No acute process. Dictated by: Dictated on workstation # [id number]
[2022-07-28 17:53] LABS: BASOPHILS # (AUTO) 0.1 10^3/uL (0.0-0.1); BASOPHILS % (AUTO) 1 % (0-10); BILIRUBIN,URINE NEGATIVE (NEGATIVE); CLARITY,URINE SL CLOUDY; COLOR,URINE YELLOW; EOSINOPHILS # (AUTO) 0.5 10^3/uL (0.0-0.3); EOSINOPHILS % (AUTO) 6 % (0-10); GLUCOSE, URINE (UA) NEGATIVE (NEGATIVE); HEMATOCRIT 40 % (35-52); HEMOGLOBIN 13.7 g/dL (11.5-16.0); KETONES,URINE NEGATIVE (NEGATIVE); LEUKOCYTE ESTERASE ,URINE 1+ (NEGATIVE); LYMPHOCYTES # (AUTO) 2.1 10^3/uL (1.0-4.0); LYMPHOCYTES % (AUTO) 25 % (12-44); MEAN CORPUSCULAR HEMOGLOBIN 29 pg (25-34); MEAN CORPUSCULAR HGB CONC 34 g/dL (32-36); MEAN CORPUSCULAR VOLUME 86 fL (80-99); MEAN PLATELET VOLUME 9.9 fL (9.0-12.2); MONOCYTES # (AUTO) 0.8 10^3/uL (0.0-1.0); MONOCYTES % (AUTO) 10 % (0-12); NEUTROPHILS # (AUTO) 4.9 10^3/uL (1.8-7.8); NEUTROPHILS % (AUTO) 58 % (42-75); NITRITE,URINE NEGATIVE (NEGATIVE); PLATELET COUNT 266 10^3/uL (130-400); PROTEIN,URINE NEGATIVE (NEGATIVE); WHITE BLOOD COUNT 8.4 10^3/uL (4.3-11.0)
[2022-07-28] MEDS ORDERED: KETOROLAC 30 MG/ML VIAL IVP ONE (18:00)
[2022-07-28 18:01] LABS: BACTERIA,URINE TRACE /HPF; RBC,URINE 0-2 /HPF
[2022-07-28 18:02] LABS: ALBUMIN 3.9 GM/DL (3.2-4.5); CHLORIDE 109 MMOL/L (98-107); POTASSIUM 3.7 MMOL/L (3.6-5.0); SODIUM 138 MMOL/L (135-145); SQUAMOUS EPITHELIAL CELL,UR 25-50 /HPF
[2022-07-28 18:04] LABS: AMORPHOUS SEDIMENT,UR FEW AMOR URATES /LPF; CALCIUM 8.7 MG/DL (8.5-10.1); YEAST,URINE RARE /HPF
[2022-07-28 18:05] LABS: GLUCOSE 113 MG/DL (70-105)
[2022-07-28 18:06] LABS: CARBON DIOXIDE 20 MMOL/L (21-32)
[2022-07-28 18:07] LABS: BILIRUBIN,TOTAL 0.3 MG/DL (0.1-1.0)
[2022-07-28 18:08] LABS: ALKALINE PHOSPHATASE 86 U/L (40-136); CREATININE SERUM 0.64 MG/DL (0.60-1.30); GFR ESTIMATED 118
[2022-07-28 18:09] LABS: BUN/CREATININE RATIO 16
[2022-07-28 18:11] LABS: ALANINE AMINOTRANSFERASE 23 U/L (0-55)
[2022-07-28 18:12] LABS: LIPASE 24 U/L (8-78)
--- NOTE | 2022-07-28 18:58 | Diagnostic Imaging Report ---
EXAM: Abdomen, flat upright/decub INDICATION: Abdominal pain. COMPARISON: None. FINDINGS: Nonspecific bowel gas pattern. Large bowel stool in the ascending and transverse colon. Cholecystectomy clips. No suspicious radiopaque foreign body. IMPRESSION: No acute radiographic finding in the abdomen. Dictated by: Dictated on workstation # [id number]
[2022-07-28 19:02] LABS: TOTAL PROTEIN 6.8 GM/DL (6.4-8.2)
[2022-07-28 19:29] VITALS: BP 102/67
== END 2022-07-28 19:36 | disposition home or self-care (01) ==
LOC: EDUNIT# 16:34 → ER 16:39
DX: R10.11 Right upper quadrant pain (principal); R00.2 Palpitations; R19.5 Other fecal abnormalities; F17.210 Nicotine dependence, cigarettes, uncomplicated; Z91.040 Latex allergy status; Z90.49 Acquired absence of other specified parts of digestive tract; Z88.1 Allergy status to other antibiotic agents
CPT/HCPCS: 36415; 71045; 74019; 80053; 81000; 83690; 84484; 84703; 85025; 87088; 93005

== ENCOUNTER 2022-08-09 19:17 | Emergency (ER) | payer MEDICAID ==
--- NOTE | 2022-08-09 20:25 | ED Lower Extremity ---
General Chief Complaint: Lower Extremity Stated Complaint: KNEE PAIN Source: patient Exam Limitations: no limitations History of Present Illness Date Seen by Provider: Aug 09, 2022 Time Seen by Provider: 20:21 Initial Comments Patient is a 37-year-old female presents ED with right medial knee pain. She states 1 hour ago her son climbed on her shoulder she stood up she felt a pop in her right knee and fell directly on the right knee. She is able to stand and bear weight but is painful especially with any type of flexion. No history of previous fracture. Swelling bruise on the medial side of the knee. Denies taking thing for pain. She reports some popping sensation with walking. Denies of any distal numbness and tingling, nausea, vomit, diarrhea Allergies and Home Medications Allergies Coded Allergies: adhesive (Verified Allergy, Unknown, 06/28/22) cephalexin (Unverified Allergy, Unknown, swelling all over, 04/28/21) latex (Verified Allergy, Unknown, 06/28/22) Patient Home Medication List Home Medication List Reviewed: Yes Buspirone HCl (Buspirone HCl) 15 Mg Tablet, (Reported) Entered as Reported by: TIFFANY ROBLEDO on 01/18/2214 Gabapentin (Gabapentin) 800 Mg Tablet, (Reported) Entered as Reported by: TIFFANY ROBLEDO on 01/18/2214 Hydroxyzine HCl (Hydroxyzine HCl) 50 Mg Tablet, (Reported) Entered as Reported by: TIFFANY ROBLEDO on 01/18/2214 Ibuprofen (Ibuprofen) 800 Mg Tablet, 800 MG PO Q6H PRN for PAIN Prescribed by: STEVIE BROCK on 08/09/222104 [place] Carbonate ([place] Carbonate) 300 Mg Tablet, (Reported) Entered as Reported by: TIFFANY ROBLEDO on 01/18/2214 Lurasidone HCl (Latuda) 40 Mg Tablet, (Reported) Entered as Reported by: TIFFANY ROBLEDO on 01/18/2214 Mirtazapine (Mirtazapine) 7.5 Mg Tablet, (Reported) Entered as Reported by: TIFFANY ROBLEDO on 01/18/2214 Naproxen (Naproxen) 500 Mg Tablet.dr, 500 MG PO BID Prescribed by: CHLOE OCHOA on 01/18/2227 Prazosin HCl (Prazosin HCl) 1 Mg Capsule, (Reported) Entered as Reported by: TIFFANY ROBLEDO on 01/18/2214 Sertraline HCl (Sertraline HCl) 100 Mg Tablet, (Reported) Entered as Reported by: TIFFANY ROBLEDO on 01/18/2214 Review of Systems Constitutional: No chills, No diaphoresis EENTM: No ear pain, No blurred vision, No double vision Respiratory: No cough Cardiovascular: No chest pain Gastrointestinal: No abdominal pain, No diarrhea, No nausea, No vomiting Genitourinary: No decreased output, No discharge Musculoskeletal: joint pain, joint swelling Skin: No change in color All Other Systems Reviewed Negative Unless Noted: Yes Past Lnhjmqs-Ulfnty-Dgkaju Hx Immunizations Up To Date First/Initial COVID19 Vaccinat: x1 Second COVID19 Vaccination Arcenio: x1 Third COVID19 Vaccination Date: x1 Past Medical History Surgery/Hospitalization HX: ANXIETY, INSOMNIA, bipolar, borderline personality disorder. c-sect x2, dental, cholecystectomy Surgeries: Yes Section, Gallbladder Respiratory: No Cardiac: No Neurological: No Genitourinary: No Gastrointestinal: No Musculoskeletal: No Endocrine: No HEENT: Yes (DENTAL ISSUES) Cancer: No Psychosocial: Yes Anxiety, Bipolar, Personality Disorder, Depression Family Medical History No Pertinent Family Hx Physical Exam Vital Signs Capillary Refill : Height, Weight, BMI Height: '" Weight: lbs. oz. kg; 40.00 BMI Method: General Appearance: WD/WN, no apparent distress HEENT: PERRL/EOMI, normal ENT inspection, TMs normal, pharynx normal Neck: non-tender, full range of motion, supple Cardiovascular: regular rate, rhythm, no edema, no gallop, no JVD Respiratory: chest non-tender, lungs clear, normal breath sounds, no respiratory distress Gastrointestinal: normal bowel sounds, non tender, soft, no organomegaly Back: normal inspection, no CVA tenderness Hips: bilateral hip non-tender, bilateral hip normal inspection, bilateral hip normal range of motion Knees: right knee pain, right knee soft tissue tenderness (Right medial knee tenderness. Flexion to 40 degrees with pain, full extension. Negative anterior posterior drawer test. 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 Swelling and bruising noted. Limited exam secondary to pain. X-ray was ordered secondary to her current pain and location of tenderness. X-ray was negative for fracture. Suspect more of a muscle bone contusion. Possible meniscus or ligament injury however difficulty assess but did not note any specific laxity. Further outpatient follow-up with orthopedic. Lior-ray in 7 to 10 days if pain progress rule out occult fracture. Range of motion exercises. Ice for the next 3 to 4 days 20-30 minutes x 4. Return back to ED if symptoms worsen Impression Primary Impression: Knee pain Disposition: 01 HOME, SELF-CARE Condition: Stable Departure-Patient Inst. Decision time for Depature: 20:24 Referrals: NO,LOCAL PHYSICIAN (PCP) Primary Care Physician CORINE VIZCAINO MD Patient Instructions: Knee Pain Scripts Ibuprofen (Ibuprofen) 800 Mg Tablet 800 MG PO Q6H PRN for PAIN, #16 TAB Prov: JANNETH ESPINOZA 08/09/22 Work/School Note: Work Release Form Date Seen in the Emergency Department: Aug 09, 2022 Return to Work: Aug 11, 2022 JANNETH ESPINOZA Aug 09, 2022 20:25
--- NOTE | 2022-08-09 20:51 | Diagnostic Imaging Report ---
INDICATION: Right medial knee pain. Three views of the right knee show no fracture, dislocation or pathologic effusion. IMPRESSION: Negative right knee. Dictated by: Dictated on workstation # [id number]
[2022-08-09] MEDS ORDERED: IBUP-1780 PO (21:05)
[2022-08-09 21:11] VITALS: BP 137/95
[2022-08-09] MEDS ORDERED: HYDROcodone/APAP 5 MG/325 MG (LORTAB) TAB PO ONE (21:15)
== END 2022-08-09 21:11 | disposition home or self-care (01) ==
LOC: EDUNIT# 19:17 → ER 19:19
DX: S80.01XA Contusion of right knee, initial encounter (principal); Z91.040 Latex allergy status; W18.30XA Fall on same level, unspecified, initial encounter; X50.1XXA Overexertion from prolonged static or awkward postures, initial encounter
CPT/HCPCS: 73562; 99283

== ENCOUNTER 2022-08-25 17:49 | Emergency (ER) | payer MEDICAID ==
[~2022-08-25] VITALS: Ht 154 cm; Wt 93.0 kg
[~2022-08-25 17:49] MED LIST changes: +IBUP-1780 PO
--- NOTE | 2022-08-25 18:56 | ED Lower Extremity ---
General Chief Complaint: Lower Extremity Stated Complaint: RIGHT LEG PAIN Nursing Triage Note: PT THINKS SHE HAS A BLOOD CLOT IN HER RIGHT LEG. PAIN AND SWELLING STARTING AT 1000 TODAY. FALL AND HURT RIGHT KNEE ONE WEEK AGO. Source: patient Exam Limitations: no limitations History of Present Illness Date Seen by Provider: August 25, 2022 Time Seen by Provider: 18:54 Initial Comments Patient is a 37-year-old female presents ED with right leg pain. Leg pain started this morning. Located to the ankle and calf. She reports swelling. Pain is all the time. She was recently placed on crutches secondary to a knee injury. She was seen here in the ER negative x-ray of the right knee concern for potential ligament or meniscus injury. She has a follow-up with orthopedic. Primary care physician placed her on crutches. She denies any bruising or redness. No recent falls since her last visit. Denies chest pain, cough, shortness of breath. Denies history of DVTs Allergies and Home Medications Allergies Coded Allergies: adhesive (Verified Allergy, Unknown, 06/28/22) cephalexin (Unverified Allergy, Unknown, swelling all over, 04/28/21) latex (Verified Allergy, Unknown, 06/28/22) Patient Home Medication List Home Medication List Reviewed: Yes Buspirone HCl (Buspirone HCl) 15 Mg Tablet, (Reported) Entered as Reported by: TIFFANY ROBLEDO on 01/18/2214 Gabapentin (Gabapentin) 800 Mg Tablet, (Reported) Entered as Reported by: TIFFANY ROBLEDO on 01/18/2214 Hydroxyzine HCl (Hydroxyzine HCl) 50 Mg Tablet, (Reported) Entered as Reported by: TIFFANY ROBLEDO on 01/18/2214 Ibuprofen (Ibuprofen) 800 Mg Tablet, 800 MG PO Q6H PRN for PAIN Prescribed by: STEVIE BROCK on 08/09/222104 [place] Carbonate ([place] Carbonate) 300 Mg Tablet, (Reported) Entered as Reported by: TIFFANY ROBLEDO on 01/18/2214 Lurasidone HCl (Latuda) 40 Mg Tablet, (Reported) Entered as Reported by: TIFFANY ROBLEDO on 01/18/2214 Mirtazapine (Mirtazapine) 7.5 Mg Tablet, (Reported) Entered as Reported by: TIFFANY ROBLEDO on 01/18/2214 Naproxen (Naproxen) 500 Mg Tablet.dr, 500 MG PO BID Prescribed by: CHLOE OCHOA on 01/18/2227 Prazosin HCl (Prazosin HCl) 1 Mg Capsule, (Reported) Entered as Reported by: TIFFANY ROBLEDO on 01/18/2214 Sertraline HCl (Sertraline HCl) 100 Mg Tablet, (Reported) Entered as Reported by: TIFFANY ROBLEDO on 01/18/2214 Review of Systems Constitutional: No chills, No diaphoresis, No fever, No malaise, No weakness EENTM: No ear pain, No blurred vision, No double vision Respiratory: No cough, No dyspnea on exertion Cardiovascular: No chest pain Gastrointestinal: No abdominal pain, No diarrhea, No nausea, No vomiting Musculoskeletal: No back pain; muscle pain, muscle stiffness Skin: No change in color All Other Systems Reviewed Negative Unless Noted: Yes Past Frksjuk-Stnyeq-Uyqqpv Hx Patient Social History Tobacco Use?: Yes Tobacco type used: Cigarettes Smoking Status: Current Everyday Smoker Substance use?: No Alcohol Use?: No Immunizations Up To Date First/Initial COVID19 Vaccinat: x1 Second COVID19 Vaccination Arcenio: x1 Third COVID19 Vaccination Date: x1 Past Medical History Surgery/Hospitalization HX: ANXIETY, INSOMNIA, bipolar, borderline personality disorder. c-sect x2, dental, cholecystectomy Surgeries: Yes Section, Gallbladder Respiratory: No Cardiac: No Neurological: No Last Menstrual Period: Jul 28, 2022 Genitourinary: No Gastrointestinal: No Musculoskeletal: No Endocrine: No HEENT: Yes (DENTAL ISSUES) Cancer: No Psychosocial: Yes Anxiety, Bipolar, Personality Disorder, Depression Family Medical History No Pertinent Family Hx Physical Exam Vital Signs Vital Signs - First Documented 08/25/22 18:00 Temp 36.7 Pulse 95 Resp 16 B/P (MAP) 150/85 (106) Pulse Ox 98 O2 Delivery Room Air Capillary Refill : Less Than 3 Seconds Height, Weight, BMI Height: '" Weight: lbs. oz. kg; 39.00 BMI Method: General Appearance: WD/WN, no apparent distress HEENT: PERRL/EOMI, normal ENT inspection, TMs normal, pharynx normal Neck: non-tender, full range of motion, supple, normal inspection Cardiovascular: regular rate, rhythm, no edema, no gallop, no JVD Respiratory: chest non-tender, lungs clear, normal breath sounds, no respiratory distress, no accessory muscle use Gastrointestinal: normal bowel sounds, non tender, soft, no organomegaly Back: normal inspection, no CVA tenderness, no vertebral tenderness Legs: right leg pain (Right calf tenderness), right leg soft tissue tenderness, right leg swelling Feet: bilateral foot non-tender, bilateral foot normal inspection Neurologic/Psychiatric: flight 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 nml as tested, no motor/sensory deficits, alert, normal mood/affect, oriented x 3 Skin: normal color, warm/dry Progress/Results/Core Measures Results/Orders Lab Results Laboratory Tests Test 08/25/22 20:14 Range/Units White Blood Count 11.0 4.3-11.0 10^3/uL Red Blood Count 4.91 3.80-5.11 10^6/uL Hemoglobin 14.0 11.5-16.0 g/dL Hematocrit 42 35-52 % Mean Corpuscular Volume 86 80-99 fL Mean Corpuscular Hemoglobin 29 25-34 pg Mean Corpuscular Hemoglobin Concent 33 32-36 g/dL Red Cell Distribution Width 12.4 10.0-14.5 % Platelet Count 313 130-400 10^3/uL Mean Platelet Volume 9.8 9.0-12.2 fL Immature Granulocyte % (Auto) 1 % Neutrophils (%) (Auto) 60 42-75 % Lymphocytes (%) (Auto) 26 12-44 % Monocytes (%) (Auto) 8 0-12 % Eosinophils (%) (Auto) 5 0-10 % Basophils (%) (Auto) 1 0-10 % Neutrophils # (Auto) 6.6 1.8-7.8 10^3/uL Lymphocytes # (Auto) 2.9 1.0-4.0 10^3/uL Monocytes # (Auto) 0.8 0.0-1.0 10^3/uL Eosinophils # (Auto) 0.6 H 0.0-0.3 10^3/uL Basophils # (Auto) 0.1 0.0-0.1 10^3/uL Immature Granulocyte # (Auto) 0.1 0.0-0.1 10^3/uL Prothrombin Time 14.1 12.2-14.7 SEC INR Comment 1.0 0.8-1.4 Activated Partial Thromboplast Time 30 24-35 SEC D-Dimer 0.44 0.00-0.49 UG/ML Sodium Level 136 135-145 MMOL/L Potassium Level 3.5 L 3.6-5.0 MMOL/L Chloride Level 105 98-107 MMOL/L Carbon Dioxide Level 21 21-32 MMOL/L Anion Gap 10 5-14 MMOL/L Blood Urea Nitrogen 10 7-18 MG/DL Creatinine 0.73 0.60-1.30 MG/DL Estimat Glomerular Filtration Rate 110 BUN/Creatinine Ratio 14 Glucose Level 100 70-105 MG/DL Calcium Level 9.0 8.5-10.1 MG/DL Corrected Calcium 9.1 8.5-10.1 MG/DL Total Bilirubin 0.4 0.1-1.0 MG/DL Aspartate Amino Transf (AST/SGOT) 18 5-34 U/L Alanine Aminotransferase (ALT/SGPT) 26 0-55 U/L Alkaline Phosphatase 109 40-136 U/L Total Protein 7.1 6.4-8.2 GM/DL Albumin 3.9 3.2-4.5 GM/DL My Orders Orders - JANNETH ESPINOZA Cbc With Automated Diff (08/25/22 18:53) Comprehensive Metabolic Panel (08/25/22 18:53) Fibrin Degradation Products (08/25/22 18:53) Partial Thromboplastin Time (08/25/22 18:53) Protime With Inr (08/25/22 18:53) Vital Signs/I&O 08/25/22 08/25/22 18:00 20:52 Temp 36.7 36.7 Pulse 95 89 Resp 16 16 B/P (MAP) 150/85 (106) 138/82 Pulse Ox 98 98 O2 Delivery Room Air Room Air Blood Pressure Mean: 106 Departure Communication (PCP) Patient presents ED with right leg pain started this morning with swelling. Recent injury to her right knee. No posterior knee tenderness. Differential diagnosis of DVT, calf strain, ankle sprain. Mild tenderness to the calf. Scheduled follow-up with orthopedic. Reviewed previous ER visits, H&P, lab testing. Denies of any recent trauma. +2 dorsalis pedis bilateral. Cap refill less than 2. She has been using crutches due to the pain in the right knee. Due to not having ultrasound at night D-dimer was ordered which was negative. CBC, CMP grossly unremarkable. No history of DVT. She does not appear septic. No evidence of cellulitis. Possible muscle strain, dependent edema. It is slightly swollen. No posterior knee tenderness. No thigh tenderness. If continued pain, bruising redness recommend ultrasound for further evaluation. If any worsening symptoms such as worsening pain and swelling, chest pain or shortness of breath return back to ED. Ice, elevate and anti-inflammatories. Impression Primary Impression: Leg pain Disposition: HOME, SELF-CARE Condition: Stable Departure-Patient Inst. Decision time for Depature: 20:45 Referrals: KING ASKEW MD (PCP) Primary Care Physician Patient Instructions: Lower Extremity Muscle Strain Add. Discharge Instructions: If continue having pain recommend outpatient ultrasound. Elevate leg at night. Anti-inflammatories for pain. All discharge instructions reviewed with patient and/or family. Voiced understanding. JANNETH ESPINOZA August 25, 2022 18:56
[2022-08-25 20:18] LABS: BASOPHILS # (AUTO) 0.1 10^3/uL (0.0-0.1); BASOPHILS % (AUTO) 1 % (0-10); EOSINOPHILS # (AUTO) 0.6 10^3/uL (0.0-0.3); EOSINOPHILS % (AUTO) 5 % (0-10); HEMATOCRIT 42 % (35-52); LYMPHOCYTES # (AUTO) 2.9 10^3/uL (1.0-4.0); LYMPHOCYTES % (AUTO) 26 % (12-44); MEAN CORPUSCULAR HEMOGLOBIN 29 pg (25-34); MEAN CORPUSCULAR HGB CONC 33 g/dL (32-36); MEAN CORPUSCULAR VOLUME 86 fL (80-99); MEAN PLATELET VOLUME 9.8 fL (9.0-12.2); MONOCYTES # (AUTO) 0.8 10^3/uL (0.0-1.0); MONOCYTES % (AUTO) 8 % (0-12); NEUTROPHILS # (AUTO) 6.6 10^3/uL (1.8-7.8); NEUTROPHILS % (AUTO) 60 % (42-75); PLATELET COUNT 313 10^3/uL (130-400)
[2022-08-25 20:31] LABS: ALBUMIN 3.9 GM/DL (3.2-4.5); POTASSIUM 3.5 MMOL/L (3.6-5.0)
[2022-08-25 20:33] LABS: FIBRIN DEGRADATION PRODUCTS 0.44 UG/ML (0.00-0.49); PROTHROMBIN TIME PATIENT 14.1 SEC (12.2-14.7); TOTAL PROTEIN 7.1 GM/DL (6.4-8.2)
[2022-08-25 20:35] LABS: BILIRUBIN,TOTAL 0.4 MG/DL (0.1-1.0)
[2022-08-25 20:37] LABS: CREATININE SERUM 0.73 MG/DL (0.60-1.30)
[2022-08-25 20:52] VITALS: BP 138/82
== END 2022-08-25 20:52 | disposition home or self-care (01) ==
LOC: EDUNIT# 17:49 → ER 17:53
DX: M79.604 Pain in right leg (principal); F17.210 Nicotine dependence, cigarettes, uncomplicated
CPT/HCPCS: 36415; 80053; 85025; 85379; 85610; 85730; 99281

== ENCOUNTER 2022-09-08 17:44 | Emergency (ER) | payer MEDICAID ==
[2022-09-08] MEDS ORDERED: morphine INJ 10 MG/ML 1ML (SYR OR VIAL) IV STA (17:53)
--- NOTE | 2022-09-08 17:55 | ED Chest Pain ---
General Chief Complaint: Chest Pain Stated Complaint: CHEST PAIN Source: patient Exam Limitations: no limitations History of Present Illness Date Seen by Provider: September 08, 2022 Time Seen by Provider: 17:54 Initial Comments Patient is a 37-year-old female presents ED with chest pain. Chest pain started 30 minutes ago while lying in bed. Described as a burning sensation. No radiation. No shortness of breath, cough, headache or dizziness. She states she did vomit once. She denies eating pain prior to the chest pain. No history of similar type in the past. Denies any recent travels, surgeries, injury. Denies abdominal pain, diarrhea fever, chills. She is currently being checked for diabetes. Denies history of smoking, hypertension, high cholesterol. Family cardiac history. Denies of any control use Allergies and Home Medications Allergies Coded Allergies: adhesive (Verified Allergy, Unknown, 06/28/22) cephalexin (Unverified Allergy, Unknown, swelling all over, 04/28/21) latex (Verified Allergy, Unknown, 06/28/22) Patient Home Medication List Home Medication List Reviewed: Yes Buspirone HCl (Buspirone HCl) 15 Mg Tablet, (Reported) Entered as Reported by: TIFFANY ROBLEDO on 01/18/2214 Gabapentin (Gabapentin) 800 Mg Tablet, (Reported) Entered as Reported by: TIFFANY ROBLEDO on 01/18/2214 Hydroxyzine HCl (Hydroxyzine HCl) 50 Mg Tablet, (Reported) Entered as Reported by: TIFFANY ROBLEDO on 01/18/2214 Ibuprofen (Ibuprofen) 800 Mg Tablet, 800 MG PO Q6H PRN for PAIN Prescribed by: STEVIE BROCK on 08/09/222104 [place] Carbonate ([place] Carbonate) 300 Mg Tablet, (Reported) Entered as Reported by: TIFFANY ROBLEDO on 01/18/2214 Lurasidone HCl (Latuda) 40 Mg Tablet, (Reported) Entered as Reported by: TIFFANY ROBLEDO on 01/18/2214 Mirtazapine (Mirtazapine) 7.5 Mg Tablet, (Reported) Entered as Reported by: TIFFANY ROBLEDO on 01/18/2214 Naproxen (Naproxen) 500 Mg Tablet.dr, 500 MG PO BID Prescribed by: CHLOE OCHOA on 01/18/2227 Prazosin HCl (Prazosin HCl) 1 Mg Capsule, (Reported) Entered as Reported by: TIFFANY ROBLEDO on 01/18/2214 Sertraline HCl (Sertraline HCl) 100 Mg Tablet, (Reported) Entered as Reported by: TIFFANY ROBLEDO on 01/18/2214 Review of Systems Review of Systems Constitutional: No chills, No diaphoresis, No malaise, No weakness EENTM: No Blurred Vision, No Double Vision, No Eye Pain Respiratory: Denies Cough, Denies Orthopnea Cardiovascular: Chest Pain Gastrointestinal: Denies Abdominal Pain, Denies Diarrhea; Nausea, Vomiting Genitourinary: Denies Burning, Denies Discharge Musculoskeletal: No back pain, No joint pain Skin: No change in color, No change in hair/nails All Other Systems Reviewed Negative Unless Noted: Yes Past Fllsgjd-Uiamju-Pvpmsu Hx Immunizations Up To Date First/Initial COVID19 Vaccinat: x1 Second COVID19 Vaccination Arcenio: x1 Third COVID19 Vaccination Date: x1 Past Medical History Surgery/Hospitalization HX: ANXIETY, INSOMNIA, bipolar, borderline personality disorder. c-sect x2, dental, cholecystectomy Surgeries: Yes Section, Gallbladder Respiratory: No Cardiac: No Neurological: No Genitourinary: No Gastrointestinal: No Musculoskeletal: No Endocrine: No HEENT: Yes (DENTAL ISSUES) Cancer: No Psychosocial: Yes Anxiety, Bipolar, Personality Disorder, Depression Family Medical History No Pertinent Family Hx Physical Exam Vital Signs Vital Signs - First Documented 09/08/22 17:46 Temp 36.6 Pulse 84 Resp 24 B/P (MAP) 150/86 (107) Pulse Ox 99 O2 Delivery Room Air Capillary Refill : Height, Weight, BMI Height: '" Weight: lbs. oz. kg; 39.00 BMI Method: General Appearance: No Apparent Distress, WD/WN HEENT: PERRL/EOMI, TMs Normal, Normal ENT Inspection, Pharynx Normal Neck: Full Range of Motion, Normal Inspection, Non Tender, Supple Respiratory: Chest Non Tender, Lungs Clear, No Accessory Muscle Use, No Respiratory Distress Cardiovascular: Regular Rate, Rhythm, No Edema, No Gallop, No JVD Gastrointestinal: Normal Bowel Sounds, No Organomegaly, No Pulsatile Mass, Non Tender Extremity: Normal Capillary Refill, Normal Inspection, Normal Range of Motion, Non Tender Neurologic/Psychiatric: Alert, Oriented x3, No Motor/Sensory Deficits, Normal Mood/Affect, data deliverables 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 II-XII Norm as Tested Skin: Normal Color, Warm/Dry Progress/Results/Core Measures Results/Orders Lab Results Laboratory Tests Test 09/08/22 17:50 Range/Units White Blood Count 10.9 4.3-11.0 10^3/uL Red Blood Count 4.83 3.80-5.11 10^6/uL Hemoglobin 13.9 11.5-16.0 g/dL Hematocrit 42 35-52 % Mean Corpuscular Volume 86 80-99 fL Mean Corpuscular Hemoglobin 29 25-34 pg Mean Corpuscular Hemoglobin Concent 34 32-36 g/dL Red Cell Distribution Width 12.8 10.0-14.5 % Platelet Count 336 130-400 10^3/uL Mean Platelet Volume 9.8 9.0-12.2 fL Immature Granulocyte % (Auto) 0 % Neutrophils (%) (Auto) 57 42-75 % Lymphocytes (%) (Auto) 30 12-44 % Monocytes (%) (Auto) 8 0-12 % Eosinophils (%) (Auto) 5 0-10 % Basophils (%) (Auto) 1 0-10 % Neutrophils # (Auto) 6.2 1.8-7.8 10^3/uL Lymphocytes # (Auto) 3.2 1.0-4.0 10^3/uL Monocytes # (Auto) 0.8 0.0-1.0 10^3/uL Eosinophils # (Auto) 0.6 H 0.0-0.3 10^3/uL Basophils # (Auto) 0.1 0.0-0.1 10^3/uL Immature Granulocyte # (Auto) 0.0 0.0-0.1 10^3/uL Prothrombin Time 12.9 12.2-14.7 SEC INR Comment 1.0 0.8-1.4 Activated Partial Thromboplast Time 26 24-35 SEC Sodium Level 139 135-145 MMOL/L Potassium Level 4.0 3.6-5.0 MMOL/L Chloride Level 111 H 98-107 MMOL/L Carbon Dioxide Level 19 L 21-32 MMOL/L Anion Gap 9 5-14 MMOL/L Blood Urea Nitrogen 11 7-18 MG/DL Creatinine 0.72 0.60-1.30 MG/DL Estimat Glomerular Filtration Rate 112 BUN/Creatinine Ratio 15 Glucose Level 102 70-105 MG/DL Calcium Level 8.8 8.5-10.1 MG/DL Corrected Calcium 8.8 8.5-10.1 MG/DL Magnesium Level 2.0 1.6-2.4 MG/DL Total Bilirubin 0.2 0.1-1.0 MG/DL Aspartate Amino Transf (AST/SGOT) 37 H 5-34 U/L Alanine Aminotransferase (ALT/SGPT) 44 0-55 U/L Alkaline Phosphatase 92 40-136 U/L Myoglobin 10.7 10.0-92.0 NG/ML Troponin I < 0.028 <0.028 NG/ML Total Protein 7.0 6.4-8.2 GM/DL Albumin 4.0 3.2-4.5 GM/DL Lipase 27 8-78 U/L Serum Test, Qualitative NEGATIVE NEGATIVE My Orders Orders - JANNETH ESPINOZA PA Cbc With Automated Diff (09/08/22 17:53) Magnesium (09/08/22 17:53) Chest 1 View, Ap/Pa Only (09/08/22 17:53) Ekg Tracing (09/08/22 17:53) Comprehensive Metabolic Panel (09/08/22 17:53) Myoglobin Serum (09/08/22 17:53) Protime With Inr (09/08/22 17:53) Partial Thromboplastin Time (09/08/22 17:53) Monitor-Rhythm Ecg Trace Only (09/08/22 17:53) Ed Iv/Invasive Line Start (09/08/22 17:53) Lipase (09/08/22 17:53) Troponin I [place] (09/08/22 17:53) Aspirin Chewable Tablet (Baby Aspirin Ch (09/08/22 18:00) Morphine Injection (Morphine Injection (09/08/22 17:53) Hcg,Qualitative Serum (09/08/22 18:11) Lidocaine 2% Viscous 15 Ml (Xylocaine Vi (09/08/22 18:45) Antacid Suspension (Mylanta Suspension (09/08/22 18:45) Ondansetron Injection (Zofran Injectio (09/08/22 19:30) Morphine Injection (Morphine Injection (09/08/22 19:30) Medications Given in ED Current Medications Medications Dose Ordered Sig/Navdeep Route Start Time Stop Time Status Last Admin Dose Admin Al Hydrox/Mg Hydrox/Simethicone 30 ml ONCE ONCE PO 09/08/22 18:45 09/08/22 18:46 DC 09/08/22 19:01 30 ML Aspirin 324 mg ONCE ONCE PO 09/08/22 18:00 09/08/22 18:01 DC 09/08/22 18:09 324 MG Lidocaine HCl 15 ml ONCE ONCE PO 09/08/22 18:45 09/08/22 18:46 DC 09/08/22 19:01 15 ML Morphine Sulfate 2 mg ONCE ONCE IVP 09/08/22 19:30 09/08/22 19:31 DC 09/08/22 19:25 2 MG Ondansetron HCl 4 mg ONCE ONCE IVP 09/08/22 19:30 09/08/22 19:31 DC 09/08/22 19:25 4 MG Vital Signs/I&O 09/08/22 09/08/22 17:46 19:56 Temp 36.6 Pulse 84 84 Resp 24 74 B/P (MAP) 150/86 (107) 149/94 Pulse Ox 99 99 O2 Delivery Room Air Room Air Comment Sinus rhythm, 85 bpm, QRS duration 81 MS, QTc 397 MS Departure Communication (PCP) Reviewed previous ER visits, H&P, lab testing acute onset of substernal burning chest pain. Started when she was laying down at home 30 minutes before arrival. No known cardiac history. No recent travels or surgeries. Denies history of control. She is not tachycardic or hypoxic. PERC is low risk. Heart score of 1. Due to her current presentation cardiac work-up was initiated. Differential diagnosis of ACS, pneumonia, pleurisy, gastritis, GERD, peptic ulcer disease, pancreatitis. EKG showed sinus rhythm without evidence of ST elevation or depression. No evidence of arrhythmia. No ischemic changes. Hematology and chemistry grossly unremarkable. Normal troponin. Chest ray negative for pneumonia, pneumothorax. Patient was given 2 mg of morphine and aspirin on arrival with some improvement of pain. Due to the burning sensation in her chest while lying down did attempt a GI cocktail without much improvement. She was given additional 2 mg morphine with improvement. She felt nauseous Zofran was given. Patient does not appear toxic or septic. No urinary symptoms, abdominal pain, diarrhea. She did vomit once earlier. She has no right or left upper quadrant tenderness. No epigastric tenderness. Normal lipase, liver enzymes and white blood count. No surgical abdomen. Neuro exam unremarkable. Due to low cardiac risk factors and reassuring lab work and EKG without ischemic changes patient will be discharged with outpatient cardiac fol low-up. If any pain with eating may consider taking Tums, Pepcid. May consider PPI. Further evaluation with primary care physician next 2 to 3 days for reevaluation. If any worsening pain return back to ED. Impression Primary Impression: Chest pain Disposition: HOME, SELF-CARE Condition: Stable Departure-Patient Inst. Decision time for Depature: 18:48 Referrals: [facility]/LENKA GARCÍA MD NO,LOCAL PHYSICIAN (PCP) Primary Care Physician Patient Instructions: Chest Pain (DC) Add. Discharge Instructions: Follow-up with cardiology for further evaluation All discharge instructions reviewed with patient and/or family. Voiced understanding. JANNETH ESPINOZA September 08, 2022 17:55
[2022-09-08] MEDS ORDERED: ASPIRIN 81 MG CHEW (CHILDREN'S ASA) PO ONE (18:00)
[2022-09-08 18:05] LABS: BASOPHILS # (AUTO) 0.1 10^3/uL (0.0-0.1); BASOPHILS % (AUTO) 1 % (0-10); EOSINOPHILS # (AUTO) 0.6 10^3/uL (0.0-0.3); EOSINOPHILS % (AUTO) 5 % (0-10); HEMATOCRIT 42 % (35-52); HEMOGLOBIN 13.9 g/dL (11.5-16.0); LYMPHOCYTES # (AUTO) 3.2 10^3/uL (1.0-4.0); LYMPHOCYTES % (AUTO) 30 % (12-44); MEAN CORPUSCULAR HEMOGLOBIN 29 pg (25-34); MEAN CORPUSCULAR HGB CONC 34 g/dL (32-36); MEAN CORPUSCULAR VOLUME 86 fL (80-99); MEAN PLATELET VOLUME 9.8 fL (9.0-12.2); MONOCYTES # (AUTO) 0.8 10^3/uL (0.0-1.0); MONOCYTES % (AUTO) 8 % (0-12); NEUTROPHILS # (AUTO) 6.2 10^3/uL (1.8-7.8); NEUTROPHILS % (AUTO) 57 % (42-75); PLATELET COUNT 336 10^3/uL (130-400); WHITE BLOOD COUNT 10.9 10^3/uL (4.3-11.0)
[2022-09-08 18:09] LABS: PROTHROMBIN TIME PATIENT 12.9 SEC (12.2-14.7)
[2022-09-08 18:12] LABS: CALCIUM 8.8 MG/DL (8.5-10.1)
[2022-09-08 18:15] LABS: BILIRUBIN,TOTAL 0.2 MG/DL (0.1-1.0)
[2022-09-08 18:16] LABS: CREATININE SERUM 0.72 MG/DL (0.60-1.30)
--- NOTE | 2022-09-08 18:30 | Diagnostic Imaging Report ---
EXAMINATION: Chest 1 view HISTORY: Chest pain. COMPARISON: 07/28/2022. FINDINGS: The lung volumes are normal. No focal consolidation is seen. No large pleural effusion or pneumothorax is seen. The cardiomediastinal silhouette is normal in size and contour. No acute osseous abnormality is seen. IMPRESSION: 1. No acute pleuroparenchymal process. Dictated by: Dictated on workstation # [id number]
[2022-09-08] MEDS ORDERED: ANTACID SUSP 30 ML UDC (MYLANTA) PO ONE (18:45)
[2022-09-08] MEDS ORDERED: LIDOCAINE 2% VISCOUS 15 ML UDC PO ONE (18:45)
[2022-09-08] MEDS ORDERED: ONDANSETRON 4 MG/2 ML (SDV) Z0FRAN IVP ONE (19:30)
[2022-09-08] MEDS ORDERED: morphine INJ 10 MG/ML 1ML (SYR OR VIAL) IVP ONE (19:30)
[2022-09-08 19:56] VITALS: BP 149/94
== END 2022-09-08 19:56 | disposition home or self-care (01) ==
LOC: EDUNIT# 17:44 → ER 17:45
DX: R07.2 Precordial pain (principal); R11.2 Nausea with vomiting, unspecified; Z91.040 Latex allergy status
CPT/HCPCS: 36415; 71045; 80053; 83690; 83735; 83874; 84484; 84703; 85025; 85610; 85730; 93005; 93041

== ENCOUNTER 2022-10-01 20:08 | Emergency (ER) | payer MEDICAID ==
[~2022-10-01] VITALS: Ht 155 cm; Wt 100.0 kg
--- NOTE | 2022-10-01 22:01 | ED GU-Female ---
General Chief Complaint: OB < 20 WEEKS Stated Complaint: VAG BLEEDING/CRAMPING 5 WKS PREG Source: patient History of Present Illness Date Seen by Provider: Oct 01, 2022 Time Seen by Provider: 21:59 Allergies and Home Medications Allergies Coded Allergies: adhesive (Verified Allergy, Unknown, 06/28/22) cephalexin (Unverified Allergy, Unknown, swelling all over, 04/28/21) latex (Verified Allergy, Unknown, 06/28/22) Patient Home Medication List Buspirone HCl (Buspirone HCl) 15 Mg Tablet, (Reported) Entered as Reported by: TIFFANY ROBLEDO on 01/18/2214 Gabapentin (Gabapentin) 800 Mg Tablet, (Reported) Entered as Reported by: TIFFANY ROBLEDO on 01/18/2214 Hydroxyzine HCl (Hydroxyzine HCl) 50 Mg Tablet, (Reported) Entered as Reported by: TIFFANY ROBLEDO on 01/18/2214 Ibuprofen (Ibuprofen) 800 Mg Tablet, 800 MG PO Q6H PRN for PAIN Prescribed by: STEVIE BROCK on 08/09/222104 [place] Carbonate ([place] Carbonate) 300 Mg Tablet, (Reported) Entered as Reported by: TIFFANY ROBLEDO on 01/18/2214 Lurasidone HCl (Latuda) 40 Mg Tablet, (Reported) Entered as Reported by: TIFFANY ROBLEDO on 01/18/2214 Mirtazapine (Mirtazapine) 7.5 Mg Tablet, (Reported) Entered as Reported by: TIFFANY ROBLEDO on 01/18/2214 Naproxen (Naproxen) 500 Mg Tablet.dr, 500 MG PO BID Prescribed by: CHLOE OCHOA on 01/18/2227 Prazosin HCl (Prazosin HCl) 1 Mg Capsule, (Reported) Entered as Reported by: TIFFANY ROBLEDO on 01/18/2214 Sertraline HCl (Sertraline HCl) 100 Mg Tablet, (Reported) Entered as Reported by: TIFFANY ROBLEDO on 01/18/2214 Past Rlomwvw-Zjbjse-Llnasd Hx Immunizations Up To Date First/Initial COVID19 Vaccinat: x1 Second COVID19 Vaccination Arcenio: x1 Third COVID19 Vaccination Date: x1 Past Medical History Surgery/Hospitalization HX: ANXIETY, INSOMNIA, bipolar, borderline personality disorder. c-sect x2, dental, cholecystectomy Surgeries: Yes Section, Gallbladder Respiratory: No Cardiac: No Neurological: No Genitourinary: No Gastrointestinal: No Musculoskeletal: No Endocrine: No HEENT: Yes (DENTAL ISSUES) Cancer: No Psychosocial: Yes Anxiety, Bipolar, Personality Disorder, Depression Family Medical History No Pertinent Family Hx Physical Exam Vital Signs Vital Signs - First Documented 10/01/22 21:30 Temp 36.4 Pulse 80 Resp 16 B/P (MAP) 147/106 (120) Capillary Refill : Height, Weight, BMI Height: '" Weight: lbs. oz. kg; 39.00 BMI Method: Progress/Results/Core Measures Suspected Sepsis SIRS Temperature: Pulse: Respiratory Rate: Laboratory Tests 10/01/22 22:05: White Blood Count 9.1 Blood Pressure / Mean: Laboratory Tests 10/01/22 22:05: Platelet Count 311 Results/Orders Lab Results Laboratory Tests Test 10/01/22 22:05 Range/Units White Blood Count 9.1 4.3-11.0 10^3/uL Red Blood Count 4.96 3.80-5.11 10^6/uL Hemoglobin 14.5 11.5-16.0 g/dL Hematocrit 43 35-52 % Mean Corpuscular Volume 87 80-99 fL Mean Corpuscular Hemoglobin 29 25-34 pg Mean Corpuscular Hemoglobin Concent 34 32-36 g/dL Red Cell Distribution Width 13.0 10.0-14.5 % Platelet Count 311 130-400 10^3/uL Mean Platelet Volume 9.7 9.0-12.2 fL Immature Granulocyte % (Auto) 0 % Neutrophils (%) (Auto) 53 42-75 % Lymphocytes (%) (Auto) 33 12-44 % Monocytes (%) (Auto) 7 0-12 % Eosinophils (%) (Auto) 6 0-10 % Basophils (%) (Auto) 1 0-10 % Neutrophils # (Auto) 4.8 1.8-7.8 10^3/uL Lymphocytes # (Auto) 3.0 1.0-4.0 10^3/uL Monocytes # (Auto) 0.7 0.0-1.0 10^3/uL Eosinophils # (Auto) 0.5 H 0.0-0.3 10^3/uL Basophils # (Auto) 0.1 0.0-0.1 10^3/uL Immature Granulocyte # (Auto) 0.0 0.0-0.1 10^3/uL Human Chorionic Gonadotropin, Quant < 5 <5 MIU/ML My Orders Orders - CHLOE OCHOA DO Cbc With Automated Diff (10/01/22 21:59) Hcg,Quantitative (10/01/22 21:59) Type And Screen (10/01/22 21:59) Vital Signs/I&O 10/01/22 21:30 Temp 36.4 Pulse 80 Resp 16 B/P (MAP) 147/106 (120) Capillary Refill : Departure Impression Primary Impression: Irregular menstrual bleeding Disposition: HOME, SELF-CARE Condition: Stable Departure-Patient Inst. Decision time for Depature: 23:03 Referrals: NO,LOCAL PHYSICIAN (PCP/Family) Primary Care Physician Patient Instructions: Absent or irregular periods, Menstrual Cramps (DC) Add. Discharge Instructions: TYLENOL AND MOTRIN NEEDED FOR PAIN FOLLOW UP WITH YOUR DR NEEDED, RETURN TO ER IF SYMPTOMS WORSEN All discharge instructions reviewed with patient and/or family. Voiced understanding. CHLOE OCHOA DO Oct 01, 2022 22:01
[2022-10-01 22:25] LABS: BASOPHILS # (AUTO) 0.1 10^3/uL (0.0-0.1); BASOPHILS % (AUTO) 1 % (0-10); EOSINOPHILS # (AUTO) 0.5 10^3/uL (0.0-0.3); EOSINOPHILS % (AUTO) 6 % (0-10); HEMATOCRIT 43 % (35-52); HEMOGLOBIN 14.5 g/dL (11.5-16.0); LYMPHOCYTES % (AUTO) 33 % (12-44); MEAN CORPUSCULAR HEMOGLOBIN 29 pg (25-34); MEAN CORPUSCULAR HGB CONC 34 g/dL (32-36); MEAN CORPUSCULAR VOLUME 87 fL (80-99); MEAN PLATELET VOLUME 9.7 fL (9.0-12.2); MONOCYTES # (AUTO) 0.7 10^3/uL (0.0-1.0); MONOCYTES % (AUTO) 7 % (0-12); NEUTROPHILS # (AUTO) 4.8 10^3/uL (1.8-7.8); NEUTROPHILS % (AUTO) 53 % (42-75); PLATELET COUNT 311 10^3/uL (130-400); WHITE BLOOD COUNT 9.1 10^3/uL (4.3-11.0)
[2022-10-01 23:25] VITALS: BP 147/106
== END 2022-10-01 23:26 | disposition home or self-care (01) ==
LOC: EDUNIT# 20:08 → ER 20:10
DX: N92.6 Irregular menstruation, unspecified (principal); Z91.040 Latex allergy status
CPT/HCPCS: 36415; 84702; 85025; 86850; 86900; 86901; 99282

== ENCOUNTER 2022-10-12 21:11 | Emergency (ER) | payer MEDICAID ==
--- NOTE | 2022-10-12 21:26 | ED Head Injury ---
General Chief Complaint: Head/Cervical Problems Stated Complaint: HEAD PAIN|NECK PAIN|HIT HEAD|HEADACHE Nursing Triage Note: PT AMB TO RM 3 WITH CC OF HITTING HEAD WHEN GETTING INTO CAR LAST PM. PT REPORTS HEAD AND NECK PAIN. DENIES LOC. Source: patient Exam Limitations: no limitations History of Present Illness Date Seen by Provider: Oct 12, 2022 Time Seen by Provider: 21:17 Initial Comments 37-year-old female presents for headache and right anterior head pain pain in her left lateral neck. She hit her head on a car while getting in last night. Pain is worsened today. No dizziness or lightheadedness. She did not lose consciousness. She is not on blood thinners. She has tried Tylenol without much relief. All other systems reviewed and negative except documented per HPI. Voice recognition software was used to help create this chart Allergies and Home Medications Allergies Coded Allergies: adhesive (Verified Allergy, Unknown, 06/28/22) cephalexin (Unverified Allergy, Unknown, swelling all over, 04/28/21) latex (Verified Allergy, Unknown, 06/28/22) Patient Home Medication List Home Medication List Reviewed: Yes Buspirone HCl (Buspirone HCl) 15 Mg Tablet, (Reported) Entered as Reported by: TIFFANY ROBLEDO on 01/18/2214 Gabapentin (Gabapentin) 800 Mg Tablet, (Reported) Entered as Reported by: TIFFANY ROBLEDO on 01/18/2214 Hydroxyzine HCl (Hydroxyzine HCl) 50 Mg Tablet, (Reported) Entered as Reported by: TIFFANY ROBLEDO on 01/18/2214 Ibuprofen (Ibuprofen) 800 Mg Tablet, 800 MG PO Q6H PRN for PAIN Prescribed by: STEVIE BROCK on 08/09/222104 [place] Carbonate ([place] Carbonate) 300 Mg Tablet, (Reported) Entered as Reported by: TIFFANY ROBLEDO on 01/18/2214 Lurasidone HCl (Latuda) 40 Mg Tablet, (Reported) Entered as Reported by: TIFFANY ROBLEDO on 01/18/2214 Mirtazapine (Mirtazapine) 7.5 Mg Tablet, (Reported) Entered as Reported by: TIFFANY ROBLEDO on 01/18/2214 Naproxen (Naproxen) 500 Mg Tablet.dr, 500 MG PO BID Prescribed by: CHLOE OCHOA on 01/18/2227 Prazosin HCl (Prazosin HCl) 1 Mg Capsule, (Reported) Entered as Reported by: TIFFANY ROBLEDO on 01/18/22 001 Sertraline HCl (Sertraline HCl) 100 Mg Tablet, (Reported) Entered as Reported by: TIFFANY ROBLEDO on 01/18/2214 Review of Systems Review of Systems Constitutional: see HPI Past Almgkls-Ofuprh-Czdmif Hx Patient Social History Tobacco Use?: Yes Tobacco type used: Cigarettes Smoking Status: Current Everyday Smoker Use of E-Cig and/or Vaping dev: Yes E-Cig or Vaping type used: Nicotine Substance use?: Yes Substance type: Marijuana Alcohol Use?: No Pt feels they are or have been: No Immunizations Up To Date First/Initial COVID19 Vaccinat: x1 Second COVID19 Vaccination Arcenio: x1 Third COVID19 Vaccination Date: x1 Past Medical History Surgery/Hospitalization HX: ANXIETY, INSOMNIA, bipolar, borderline personality disorder. c-sect x2, dental, cholecystectomy Surgeries: Yes Section, Gallbladder Respiratory: No Cardiac: No Neurological: No Genitourinary: No Gastrointestinal: No Musculoskeletal: No Endocrine: No HEENT: Yes (DENTAL ISSUES) Cancer: No Psychosocial: Yes Anxiety, Bipolar, Personality Disorder, Depression Family Medical History No Pertinent Family Hx Physical Exam Vital Signs Vital Signs - First Documented 10/12/22 21:16 Pulse 83 Resp 18 B/P (MAP) 168/107 (127) Pulse Ox 99 O2 Delivery Room Air Capillary Refill : Less Than 3 Seconds Height, Weight, BMI Height: '" Weight: lbs. oz. kg; 41.00 BMI Method: General Appearance: WD/WN, no apparent distress, other (Mild tenderness palpation, right anterior forehead. No abrasion or swelling.) HEENT: PERRL/EOMI, normal ENT inspection, TMs normal, pharynx normal Neck: full range of motion, supple, other (Tenderness palpation of the paraspinal muscle in the left lateral neck. No midline tenderness) Cardiovascular: regular rate, rhythm, no murmur Respiratory: chest non-tender, lungs clear, normal breath sounds Gastrointestinal: non tender, soft Psychiatric: alert, oriented x 3 Skin: normal color, warm/dry Progress/Results/Core Measures Results/Orders Vital Signs/I&O 10/12/22 21:16 Pulse 83 Resp 18 B/P (MAP) 168/107 (127) Pulse Ox 99 O2 Delivery Room Air Blood Pressure Mean: 127 Departure Impression Primary Impression: Head contusion Qualified Codes: S00.93XA - Contusion of unspecified part of head, initial encounter Additional Impression: Neck pain on left side Disposition: HOME, SELF-CARE Condition: Stable Departure-Patient Inst. Referrals: NO,LOCAL PHYSICIAN (PCP/Family) Primary Care Physician Patient Instructions: Neck Pain Exercises Add. Discharge Instructions: Alternate ibuprofen and Tylenol for pain. Increase your fluids and rest. All discharge instructions reviewed with patient and/or family. Voiced understanding. CHARISSA THAPA DO Oct 12, 2022 21:26
[2022-10-12 21:29] VITALS: BP 168/107
== END 2022-10-12 21:29 | disposition home or self-care (01) ==
LOC: EDUNIT# 21:11 → ER 21:13
DX: S00.83XA Contusion of other part of head, initial encounter (principal); M54.2 Cervicalgia; F17.210 Nicotine dependence, cigarettes, uncomplicated; F17.290 Nicotine dependence, other tobacco product, uncomplicated; Z91.040 Latex allergy status; W22.8XXA Striking against or struck by other objects, initial encounter
CPT/HCPCS: 99281

== ENCOUNTER 2022-10-24 23:00 | Emergency (ER) | payer MEDICAID ==
[~2022-10-24] VITALS: Ht 154.9 cm; Wt 97.5 kg
[2022-10-24 23:12] LABS: BILIRUBIN,URINE NEGATIVE (NEGATIVE); CLARITY,URINE SL CLOUDY; COLOR,URINE YELLOW; GLUCOSE, URINE (UA) NEGATIVE (NEGATIVE); KETONES,URINE NEGATIVE (NEGATIVE); LEUKOCYTE ESTERASE ,URINE NEGATIVE (NEGATIVE); NITRITE,URINE NEGATIVE (NEGATIVE); PROTEIN,URINE NEGATIVE (NEGATIVE)
[2022-10-24 23:19] LABS: BACTERIA,URINE TRACE /HPF; SQUAMOUS EPITHELIAL CELL,UR 25-50 /HPF
--- NOTE | 2022-10-24 23:30 | ED GU-Female ---
General Chief Complaint: - Reproductive Stated Complaint: FREQUENT URINATION Nursing Triage Note: PT AMB TO RM 6 WITH CC OF URINARY FREQUENCY X4 DAYS. PT STATED THAT SHE COULD POSSIBLY BE . LAST MENSTRAL CYCLE WAS September. Source: patient, family Exam Limitations: no limitations (BUDDY NAVARRO) History of Present Illness Date Seen by Provider: Oct 24, 2022 Time Seen by Provider: 23:15 Initial Comments Our patient is a 37 yo F who presents to the emergency department for a 4 day history of urinary frequency. She denies burning but states that she feels the need to urinate multiple times an hour. She notes a history of infrequent urinary tract infections but has not had one for quite some time. Her urinary symptoms have been accompanied by new-onset abdominal cramping similar to more severe period cramps as well as nausea and vomiting 2 days ago. She denies fever or chills, recent sick contacts, back pain, or abdominal pain. Last period was October 01 and she states that her menstrual cycles are regular. She believes that there is a possibility that she is due to a trace positive test that she took yesterday. She denies blood or other abnormal vaginal discharge. Timing/Duration: other (4 days ago) Severity/Quality: mild Prior Genitourinary Problems: similar symptoms Associated Symptoms: No abdominal pain, No dysuria, No fever/chills, No loss of bladder control, No lower back pain; nausea/vomiting, urinary frequency (BUDDY NAVARRO) Allergies and Home Medications Allergies Coded Allergies: adhesive (Verified Allergy, Unknown, 06/28/22) cephalexin (Unverified Allergy, Unknown, swelling all over, 04/28/21) latex (Verified Allergy, Unknown, 06/28/22) Patient Home Medication List Home Medication List Reviewed: Yes (SAMEERA TERRAZAS MD) Buspirone HCl (Buspirone HCl) 15 Mg Tablet, (Reported) Entered as Reported by: TIFFANY ROBLEDO on 01/18/2214 Gabapentin (Gabapentin) 800 Mg Tablet, (Reported) Entered as Reported by: TIFFANY ROBLEDO on 01/18/2214 Hydroxyzine HCl (Hydroxyzine HCl) 50 Mg Tablet, (Reported) Entered as Reported by: TIFFANY ROBLEDO on 01/18/2214 Ibuprofen (Ibuprofen) 800 Mg Tablet, 800 MG PO Q6H PRN for PAIN Prescribed by: STEVIE BROCK on 08/09/222104 [place] [employer] Carbonate ([employer] [place] [employer] Carbonate) 300 Mg Tablet, (Reported) Entered as Reported by: TIFFANY ROBLEDO on 01/18/2214 Lurasidone HCl (Latuda) 40 Mg Tablet, (Reported) Entered as Reported by: TIFFANY ROBLEDO on 01/18/2214 Mirtazapine (Mirtazapine) 7.5 Mg Tablet, (Reported) Entered as Reported by: TIFFANY ROBLEDO on 01/18/2214 Naproxen (Naproxen) 500 Mg Tablet.dr, 500 MG PO BID Prescribed by: CHLOE OCHOA on 01/18/2227 Prazosin HCl (Prazosin HCl) 1 Mg Capsule, (Reported) Entered as Reported by: TIFFANY ROBLEDO on 01/18/2214 Sertraline HCl (Sertraline HCl) 100 Mg Tablet, (Reported) Entered as Reported by: TIFFANY ROBLEDO on 01/18/2214 Review of Systems Review of Systems Constitutional: no symptoms reported; No chills, No diaphoresis, No fever EENTM: no symptoms reported Respiratory: no symptoms reported Cardiovascular: no symptoms reported Gastrointestinal: see HPI; No abdominal pain, No constipation, No diarrhea; nausea, vomiting Genitourinary: denies burning, denies discharge, denies dysuria; frequency; denies flank pain, denies hematuria; urgency Musculoskeletal: no symptoms reported Skin: no symptoms reported; No pruritus, No rash Psychiatric/Neurological: No Symptoms Reported Endocrine: No Symptoms Reported Hematologic/Lymphatic: No Symptoms Reported (BUDDY NAVARRO) All Other Systemes Reviewed Negative Unless Noted: Yes (BUDDY NAVARRO) Past Ukedavo-Xlnswx-Jcppgy Hx Patient Social History Tobacco Use?: Yes Tobacco type used: Cigarettes Smoking Status: Current Everyday Smoker (4 cigarettes a day) Use of E-Cig and/or Vaping dev: Yes E-Cig or Vaping type used: Nicotine Substance use?: No Alcohol Use?: No (BUDDY NAVARRO) Immunizations Up To Date First/Initial COVID19 Vaccinat: x1 Second COVID19 Vaccination Arcenio: x1 Third COVID19 Vaccination Date: x1 (BUDDY NAVARRO) Past Medical History Surgery/Hospitalization HX: ANXIETY, INSOMNIA, bipolar, borderline personality disorder. c-sect x2, dental, cholecystectomy Surgeries: Yes Section, Gallbladder Respiratory: No Cardiac: No Neurological: No Last Menstrual Period: Oct 01, 2022 Genitourinary: No Gastrointestinal: No Musculoskeletal: No Endocrine: No HEENT: Yes (DENTAL ISSUES) Cancer: No Psychosocial: Yes Anxiety, Bipolar, Personality Disorder, Depression (BUDDY NAVARRO) Family Medical History No Pertinent Family Hx (BUDDY NAVARRO) Physical Exam Vital Signs Vital Signs - First Documented 10/24/22 23:02 Temp 36.6 Pulse 82 B/P (MAP) 143/103 (116) Pulse Ox 99 O2 Delivery Room Air (SAMEERA TERRAZAS MD) Vital Signs Capillary Refill : (BUDDY NAVARRO) Height, Weight, BMI Height: '" Weight: lbs. oz. kg; 40.00 BMI Method: General Appearance: WD/WN, no apparent distress, obese HEENT: PERRL/EOMI; No scleral icterus (R), No scleral icterus (L) Cardiovascular: regular rate, rhythm, no edema, no gallop, no JVD, no murmur Respiratory: chest non-tender, lungs clear, normal breath sounds, no respiratory distress, no accessory muscle use Gastrointestinal: normal bowel sounds, non tender, soft, no organomegaly, no pulsatile mass, other (Urge to urinate on palpation of the suprapubic region) Rectal: deferred Back: normal inspection, no CVA tenderness Extremities: normal inspection Neurologic/Psychiatric: alert, normal mood/affect, oriented x 3 Skin: normal color, warm/dry (BUDDY NAVARRO) Progress/Results/Core Measures Suspected Sepsis SIRS Temperature: Pulse: 82 Respiratory Rate: Blood Pressure 143 /103 Mean: 116 (BUDDY NAVARRO) Results/Orders Lab Results Laboratory Tests Test 10/24/22 23:04 Range/Units Urine Color YELLOW Urine Clarity SL CLOUDY Urine pH 6.0 5-9 Urine Specific [place] >=1.030 1.016-1.022 Urine Protein NEGATIVE NEGATIVE Urine Glucose (UA) NEGATIVE NEGATIVE Urine Ketones NEGATIVE NEGATIVE Urine Nitrite NEGATIVE NEGATIVE Urine Bilirubin NEGATIVE NEGATIVE Urine Urobilinogen 1.0 < = 1.0 MG/DL Urine Leukocyte Esterase NEGATIVE NEGATIVE Urine RBC (Auto) NEGATIVE NEGATIVE Urine RBC NONE /HPF Urine WBC NONE /HPF Urine Squamous Epithelial Cells 25-50 H /HPF Urine Crystals NONE /LPF Urine Bacteria TRACE /HPF Urine Casts NONE /LPF Urine Mucus LARGE H /LPF Urine Culture Indicated NO (SAMEERA TERRAZAS MD) My Orders Orders - SAMEERA TERRAZAS MD Ua Culture If Indicated (10/24/22 23:03) Urine Bedside (10/24/22 23:23) (SAMEERA TERRAZAS MD) Vital Signs/I&O 10/24/22 10/24/22 23:02 23:58 Temp 36.6 Pulse 82 71 B/P (MAP) 143/103 (116) 130/90 Pulse Ox 99 97 O2 Delivery Room Air Room Air (SAMEERA TERRAZAS MD) Vital Signs/I&O Capillary Refill : (BUDDY NAVARRO) Blood Pressure Mean: 116 Progress Note : Progress Note UA was unremarkable by my interpretation. Urine test was negative. Patient questions answered. See discharge instructions. (SAMEERA TERRAZAS MD) Departure Impression Primary Impression: Urinary frequency Additional Impression: Late menstruation Disposition: 01 HOME, SELF-CARE Condition: Stable Departure-Patient Inst. Decision time for Depature: 23:48 (SAMEERA TERRAZAS MD) Referrals: NO,LOCAL PHYSICIAN (PCP/Family) Primary Care Physician Patient Instructions: NO INSTRUCTIONS GIVEN Add. Discharge Instructions: There is no indication of urinary tract infection on your urine specimen today. Your urine test was negative. If you do not start your menstrual cycle in the next couple of days, please take another test. If you are having other persistent issues with delayed period or urinary frequency, please see your primary care provider. You may return to the emergency room anytime if you have worsening symptoms. All discharge instructions reviewed with patient and/or family. Voiced understanding. Medical Student Attestation and Attending Note: I have personally interviewed and examined this patient along with HENRIETTA Cervantes. I have reviewed student documentation including history, physical, and assessments. I agree with the documentation except where otherwise noted. Exam: General: Alert, oriented, no acute distress, well developed HEENT: Normocephalic and atraumatic Heart: Regular rate and rhythm without murmur Lungs: Clear to auscultation bilaterally with normal effort Abdomen: Soft, nontender, nondistended, normal bowel sounds Neuropsych: Alert, oriented, no focal deficits Skin: Warm and dry without rashes (SAMEERA TERRAZAS MD) BUDDY NAVARRO Oct 24, 2022 23:30 SAMEERA TERRAZAS MD Oct 24, 2022 23:50
[2022-10-24 23:58] VITALS: BP 130/90
== END 2022-10-24 23:58 | disposition home or self-care (01) ==
LOC: EDUNIT# 23:00 → ER 23:02
DX: R35.0 Frequency of micturition (principal); N91.0 Primary amenorrhea; F17.210 Nicotine dependence, cigarettes, uncomplicated; F17.290 Nicotine dependence, other tobacco product, uncomplicated; Z91.040 Latex allergy status
CPT/HCPCS: 81000; 84703; 99282

== ENCOUNTER 2022-12-16 22:43 | Emergency (ER) | payer MEDICAID ==
[~2022-12-16] VITALS: Ht 155 cm; Wt 96.2 kg
--- NOTE | 2022-12-16 23:13 | ED Abdominal Pain ---
General Chief Complaint: OB < 20 WEEKS Stated Complaint: VOMITING CHILLS 11 WKS PREG Nursing Triage Note: PT AMB TO ED BY POV WITH C/O INCREASED VOMITING X 2 DAYS. PT REPORTS SHE IS 11 WEEKS AND HAS BEEN VOMITING DAILY, BUT FEELS LIKE SHE HAS VOMITED MORE OVER THE LAST 2 DAYS. PT ALSO REPORTS CHILLS. DENIES ABD PAIN OR URINARY SX. Source of Information: Patient Exam Limitations: No Limitations History of Present Illness Date Seen by Provider: Dec 16, 2022 Time Seen by Provider: 22:55 Initial Comments Patient is a 37-year-old female who presents to the emergency room with a chief complaint of generalized weakness, dizziness with standing, nausea and vomiting. She is approximately 11 weeks with a last menstrual cycle of October 01, 2022 and an estimated due date of July 08, 2023. Patient states its been at least 10 years since her last . She is a G3, P2. 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 She thinks that she may have gotten more dehydrated than normal. She has struggled with nausea and vomiting throughout this . She has been taking xeoc-ebe-tkhidug Unisom for her nausea but it has not been helping. Her OB provider is from [facility]. She was told she could not get prescription nausea medicine until next week. Patient denies any fevers. She has felt a little chilled today. No headache, she has a little bit of a chronic runny nose due to "allergies". No chest pain or shortness of breath. No abdominal pain or cramping. No abnormal vaginal bleeding or discharge. Timing/Duration: 1-2 Days Severity/Quality: Moderate Location: Generalized Abdomen Radiation: No Radiation Associated Symptoms: Nausea/Vomiting, Weakness, Other (; lightheaded) Allergies and Home Medications Allergies Coded Allergies: adhesive (Verified Allergy, Unknown, 06/28/22) cephalexin (Unverified Allergy, Unknown, swelling all over, 04/28/21) latex (Verified Allergy, Unknown, 06/28/22) Patient Home Medication List Home Medication List Reviewed: Yes Buspirone HCl (Buspirone HCl) 15 Mg Tablet, (Reported) Entered as Reported by: TIFFANY ROBLEDO on 01/18/22 0015 Gabapentin (Gabapentin) 800 Mg Tablet, (Reported) Entered as Reported by: TIFFANY ROBLEDO on 01/18/2214 Hydroxyzine HCl (Hydroxyzine HCl) 50 Mg Tablet, (Reported) Entered as Reported by: TIFFANY ROBLEDO on 01/18/2214 Ibuprofen (Ibuprofen) 800 Mg Tablet, 800 MG PO Q6H PRN for PAIN Prescribed by: STEVIE BROCK on 08/09/222104 [place] Carbonate ([place] Carbonate) 300 Mg Tablet, (Reported) Entered as Reported by: TIFFANY ROBLEDO on 01/18/2214 Lurasidone HCl (Latuda) 40 Mg Tablet, (Reported) Entered as Reported by: TIFFANY ROBLEDO on 01/18/2214 Mirtazapine (Mirtazapine) 7.5 Mg Tablet, (Reported) Entered as Reported by: TIFFANY ROBLEDO on 01/18/2214 Naproxen (Naproxen) 500 Mg Tablet.dr, 500 MG PO BID Prescribed by: CHLOE OCHOA on 01/18/2227 Prazosin HCl (Prazosin HCl) 1 Mg Capsule, (Reported) Entered as Reported by: TIFFANY ROBLEDO on 01/18/2214 Sertraline HCl (Sertraline HCl) 100 Mg Tablet, (Reported) Entered as Reported by: TIFFANY ROBLEDO on 01/18/2214 Review of Systems Review of Systems Constitutional: see HPI EENTM: No Symptoms Reported Respiratory: No Symptoms Reported Cardiovascular: No Symptoms Reported Gastrointestinal: Nausea, Vomiting Genitourinary: No Symptoms Reported Musculoskeletal: no symptoms reported Skin: no symptoms reported Psychiatric/Neurological: Denies Headache; Other (light headed/weakness) Past Sxgnvby-Eciuna-Zabxqs Hx Patient Social History Tobacco Use?: No Smoking Status: Former Smoker Substance use?: No Alcohol Use?: No Pt feels they are or have been: No Immunizations Up To Date First/Initial COVID19 Vaccinat: x1 Second COVID19 Vaccination Arcenio: x1 Third COVID19 Vaccination Date: x1 Past Medical History Surgery/Hospitalization HX: ANXIETY, INSOMNIA, bipolar, borderline personality disorder. c-sect x2, dental, cholecystectomy Surgeries: Yes Section, Gallbladder Respiratory: No Cardiac: No Neurological: No Last Menstrual Period: Oct 01, 2022 Genitourinary: No Gastrointestinal: No Musculoskeletal: No Endocrine: No HEENT: Yes (DENTAL ISSUES) Cancer: No Psychosocial: Yes Anxiety, Bipolar, Personality Disorder, Depression Family Medical History No Pertinent Family Hx Physical Exam Vital Signs Vital Signs - First Documented 12/16/22 22:49 Temp 36.9 Pulse 86 Resp 16 B/P (MAP) 124/72 (89) Pulse Ox 98 O2 Delivery Room Air Capillary Refill : Less Than 3 Seconds Height/Weight/BMI Height: '" Weight: lbs. oz. kg; 40.00 BMI Method: General Appearance: WD/WN, no apparent distress, obese HEENT: PERRL/EOMI Neck: full range of motion Respiratory: lungs clear, normal breath sounds, no respiratory distress Cardiovascular: regular rate, rhythm Gastrointestinal: non tender, soft Extremities: normal range of motion, normal inspection, no pedal edema, normal capillary refill Neurologic/Psychiatric: alert, normal mood/affect, oriented x 3 Skin: normal color, warm/dry Progress/Results/Core Measures Results/Orders Lab Results Laboratory Tests Test 12/16/22 23:19 12/16/22 23:22 Range/Units Urine Color YELLOW Urine Clarity CLEAR Urine pH 5.5 5-9 Urine Specific [place] >=1.030 1.016-1.022 Urine Protein NEGATIVE NEGATIVE Urine Glucose (UA) NEGATIVE NEGATIVE Urine Ketones NEGATIVE NEGATIVE Urine Nitrite NEGATIVE NEGATIVE Urine Bilirubin NEGATIVE NEGATIVE Urine Urobilinogen 2.0 < = 1.0 MG/DL Urine Leukocyte Esterase NEGATIVE NEGATIVE Urine RBC (Auto) NEGATIVE NEGATIVE Urine RBC 0-2 /HPF Urine WBC 0-2 /HPF Urine Squamous Epithelial Cells TNTC H /HPF Urine Crystals PRESENT H /LPF Urine Amorphous Sediment RARE GER URATES H /LPF Urine Bacteria FEW H /HPF Urine Casts NONE /LPF Urine Mucus LARGE H /LPF Urine Culture Indicated NO Sodium Level 137 135-145 MMOL/L Potassium Level 3.2 L 3.6-5.0 MMOL/L Chloride Level 109 H 98-107 MMOL/L Carbon Dioxide Level 18 L 21-32 MMOL/L Anion Gap 10 5-14 MMOL/L Blood Urea Nitrogen 6 L 7-18 MG/DL Creatinine 0.62 0.60-1.30 MG/DL Estimat Glomerular Filtration Rate 119 BUN/Creatinine Ratio 10 Glucose Level 96 70-105 MG/DL Calcium Level 8.8 8.5-10.1 MG/DL My Orders Orders - RAIN MEEKS MD Ed Iv/Invasive Line Start (12/16/22 23:02) Basic Metabolic Panel (12/16/22 23:02) Ua Culture If Indicated (12/16/22 23:02) Lactated Ringers (Lr 1000 Ml Iv Solution (12/16/22 23:15) Ondansetron Injection (Ondansetron Inj (12/16/22 23:15) Medications Given in ED Current Medications Medications Dose Ordered Sig/Navdeep Route Start Time Stop Time Status Last Admin Dose Admin Ondansetron HCl 8 mg ONCE ONCE IVP 12/16/22 23:15 12/16/22 23:16 DC 12/16/22 23:22 8 MG Vital Signs/I&O 12/16/22 22:49 Temp 36.9 Pulse 86 Resp 16 B/P (MAP) 124/72 (89) Pulse Ox 98 O2 Delivery Room Air Blood Pressure Mean: 89 Progress Progress Note : Time: 23:52 Progress Note Patient seen and evaluated by me, evaluation today includes physical exam, basic metabolic panel, urinalysis. Pertinent physical exam findings well-developed well-nourished obese female in no acute distress with stable vital signs. Examination is grossly unremarkable, no abdominal tenderness. No lower extremity edema. Nonfocal neuro exam. Differential diagnosis based on history and physical exam, vomiting of early , dehydration, viral syndrome. Labs independently reviewed and interpreted by me. Her chemistry is pertinent for a potassium of 3.2, CO2 slightly low at 18. Serum glucose is 96. Her urine is concentrated with specific gravity of 1.030 it is contaminated with too numerous to count squamous epithelial cells. She has few bacteria, negative LE, negative nitrite 0-2 red blood cells and 0-2 white blood cells. I am not concerned at this point for asymptomatic bacteria in this patient with a grossly contaminated urine. She was treated in the emergency department with 8 mg of IV Zofran and a liter of lactated Ringer's. She is afebrile and has diarrhea at baseline due to previous cholecystectomy. Low clinical concern for infectious process, I believe this is more related to "heat stress" and her normal nausea and vomiting of . SHe feels better with the zofran. Is currently sipping on fluids - handling them well. Will provide her with some over the counter suggestions for nausea such as froy candies, unisom, Vitamin B6. Will recommend saltine crackers by the bed for when she first awakens in the morning. FLuids throughout the day. Close follow up with Ob provider. Departure Impression Primary Impression: Vomiting affecting , antepartum Additional Impressions: Hypokalemia Mild dehydration Disposition: 01 HOME, SELF-CARE Condition: Improved Departure-Patient Inst. Decision time for Depature: 00:05 Referrals: NO,LOCAL PHYSICIAN (PCP/Family) Primary Care Physician Patient Instructions: Morning Sickness ED Add. Discharge Instructions: You can continue to take the Unisom for nausea as your OB provider recommends. Vitamin B6 is also good for nausea. Froy candies can help with the feelings of nausea, as can having Saltine Crackers and a bottle of water by the bed - to eat right as you wake up in the morning, before your feet hit the floor. Eat a couple of crackers and a few sips of water and then get up. Small frequent meals throughout the day. Avoid being outside for prolonged periods during the hottest parts of the day. Follow up next week with your OB doctor. Return to the Emergency Department for re-evaluation if you have any other new, emergent or concerning symptoms. RAIN MEEKS MD Dec 16, 2022 23:13
[2022-12-16] MEDS ORDERED: LACTATED RINGERS 1,000 ML 1,000 ML IV SCH (23:15)
[2022-12-16] MEDS ORDERED: ONDANSETRON INJECTION 4 MG/2 ML (SDV) IVP ONE (23:15)
[2022-12-16 23:36] LABS: CLARITY,URINE CLEAR; COLOR,URINE YELLOW; GLUCOSE, URINE (UA) NEGATIVE (NEGATIVE); PH,URINE 5.5 (5-9); PROTEIN,URINE NEGATIVE (NEGATIVE)
[2022-12-16 23:37] LABS: AMORPHOUS SEDIMENT,UR RARE AMOR URATES /LPF; BACTERIA,URINE FEW /HPF; BILIRUBIN,URINE NEGATIVE (NEGATIVE); KETONES,URINE NEGATIVE (NEGATIVE); LEUKOCYTE ESTERASE ,URINE NEGATIVE (NEGATIVE); NITRITE,URINE NEGATIVE (NEGATIVE); RBC,URINE 0-2 /HPF; SQUAMOUS EPITHELIAL CELL,UR TNTC /HPF; WBC,URINE 0-2 /HPF
[2022-12-16 23:43] LABS: POTASSIUM 3.2 MMOL/L (3.6-5.0)
[2022-12-16 23:45] LABS: CALCIUM 8.8 MG/DL (8.5-10.1)
[2022-12-16 23:49] LABS: CREATININE SERUM 0.62 MG/DL (0.60-1.30)
[2022-12-17 00:11] VITALS: BP 110/53
== END 2022-12-17 00:16 | disposition home or self-care (01) ==
LOC: EDUNIT# 22:43 → ER 22:45
DX: O21.9 Vomiting of pregnancy, unspecified (principal); O99.281 Endocrine, nutritional and metabolic diseases complicating pregnancy, first trimester; O99.611 Diseases of the digestive system complicating pregnancy, first trimester; E87.6 Hypokalemia; E86.0 Dehydration; Z91.040 Latex allergy status; Z87.891 Personal history of nicotine dependence; Z3A.11 11 weeks gestation of pregnancy
CPT/HCPCS: 36415; 80048; 81000

== ENCOUNTER 2023-01-25 22:25 | Emergency (ER) | payer MEDICAID ==
[2023-01-25 22:39] VITALS: BP 124/75
--- NOTE | 2023-01-25 22:57 | ED General ---
General Chief Complaint: Trauma-Non Activation Stated Complaint: FALL- LT KNEE HURTING, ABD PAIN, CRAMPING, 16 PREG Source of Information: Patient Exam Limitations: No Limitations History of Present Illness Date Seen by Provider: Jan 25, 2023 Time Seen by Provider: 22:33 Initial Comments Here with report of fall tonight after tripping over her cat. She reports that she is approximately 16 weeks . She did hit her left knee and then her abdomen. She was not too concerned about it but then started having some cramping so she decided to come in for evaluation. 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 She denies vaginal bleeding or gush of fluid. She is walking without difficulty with only little pain to the lateral aspect of the knee distally. Denies other injury or concerns. This is her third and the previous 2 were via . Timing/Duration: 1-3 Hours Severity: Mild Allergies and Home Medications Allergies Coded Allergies: adhesive (Verified Allergy, Unknown, 06/28/22) cephalexin (Unverified Allergy, Unknown, swelling all over, 04/28/21) latex (Verified Allergy, Unknown, 06/28/22) Patient Home Medication List Home Medication List Reviewed: Yes Buspirone HCl (Buspirone HCl) 15 Mg Tablet, (Reported) Entered as Reported by: TIFFANY ROBLEDO on 01/18/2214 Gabapentin (Gabapentin) 800 Mg Tablet, (Reported) Entered as Reported by: TIFFANY ROBLEDO on 01/18/2214 Hydroxyzine HCl (Hydroxyzine HCl) 50 Mg Tablet, (Reported) Entered as Reported by: TIFFANY ROBLEDO on 01/18/2214 Ibuprofen (Ibuprofen) 800 Mg Tablet, 800 MG PO Q6H PRN for PAIN Prescribed by: STEVIE BROCK on 08/09/222104 [place] Carbonate ([place] Carbonate) 300 Mg Tablet, (Reported) Entered as Reported by: TIFFANY ROBLEDO on 01/18/2214 Lurasidone HCl (Latuda) 40 Mg Tablet, (Reported) Entered as Reported by: TIFFANY ROBLEDO on 01/18/2214 Mirtazapine (Mirtazapine) 7.5 Mg Tablet, (Reported) Entered as Reported by: TIFFANY ROBLEDO on 01/18/2214 Naproxen (Naproxen) 500 Mg Tablet.dr 500 MG PO BID Prescribed by: CHLOE OCHOA on 01/18/22 0028 Prazosin HCl (Prazosin HCl) 1 Mg Capsule, (Reported) Entered as Reported by: TIFFANY ROBLEDO on 01/18/2214 Sertraline HCl (Sertraline HCl) 100 Mg Tablet, (Reported) Entered as Reported by: TIFFANY ROBLEDO on 01/18/2214 Review of Systems Review of Systems Constitutional: see HPI Respiratory: No short of breath Cardiovascular: No chest pain Gastrointestinal: abdominal pain (Lower abdominal cramping) Genitourinary: No discharge, No pain : Yes Musculoskeletal: joint pain; No muscle pain Past Zwzgfnt-Vxteds-Iwuguo Hx Immunizations Up To Date First/Initial COVID19 Vaccinat: x1 Second COVID19 Vaccination Arcenio: x1 Third COVID19 Vaccination Date: x1 Past Medical History Surgery/Hospitalization HX: ANXIETY, INSOMNIA, bipolar, borderline personality disorder. c-sect x2, dental, cholecystectomy Surgeries: Yes Section, Gallbladder Respiratory: No Cardiac: No Neurological: No Genitourinary: No Gastrointestinal: No Musculoskeletal: No Endocrine: No HEENT: Yes (DENTAL ISSUES) Cancer: No Psychosocial: Yes Anxiety, Bipolar, Personality Disorder, Depression Family Medical History No Pertinent Family Hx Physical Exam Vital Signs Capillary Refill : Height, Weight, BMI Height: '" Weight: lbs. oz. kg; 40.00 BMI Method: General Appearance: No Apparent Distress, WD/WN Respiratory: Lungs Clear, Normal Breath Sounds Cardiovascular: Regular Rate, Rhythm, No Murmur Gastrointestinal: Non Tender, Soft Extremity: Other (Continue with mild tenderness to the lateral aspect of the distal knee without significant swelling or contusion. Negative drawer or laxity. Normal range of motion and walks without difficulty) Neurologic/Psychiatric: Alert, Oriented x3 Skin: Normal Color, Warm/Dry Progress/Results/Core Measures Suspected Sepsis SIRS Temperature: Pulse: Respiratory Rate: Blood Pressure / Mean: Results/Orders Vital Signs/I&O Capillary Refill : Progress Note : Progress Note Seen and evaluated. We discussed and agree that there is no indication for x- ray of the knee at this point as she is walking on it and she has no significant physical exam findings that are abnormal. I did do a bedside ultrasound of the abdomen to evaluate fetus. Positive movement with heart rate approximately 150 on ultrasound. There does appear to be an adequate amount of fluid. No indication for further evaluation given her time of . I have instructed her to follow-up with her OB for further evaluation which she will. She was comforted at this point. Discharged home with return precautions. Patient verbalized understanding instructions and agreement with plan. Departure Impression Primary Impression: Knee pain, left Qualified Codes: M25.562 - Pain in left knee Additional Impression: Abdominal pain during Qualified Codes: O26.892 - Other specified related conditions, second trimester; R10.9 - Unspecified abdominal pain Disposition: HOME, SELF-CARE Condition: Improved Departure-Patient Inst. Decision time for Depature: 22:56 Referrals: NO,LOCAL PHYSICIAN (PCP/Family) Primary Care Physician Patient Instructions: Abdominal Trauma in (DC), Knee Pain (DC) Add. Discharge Instructions: All discharge instructions reviewed with patient and/or family. Voiced understanding. Follow-up with your OB doctor for recheck and further evaluation. Call tomorrow for appointment. Return for worse pain, vaginal bleeding, gush of vaginal fluids, weakness, breathing problems or other concerns as needed. You may use ice packs to the knee as needed to reduce swelling and pain. MARÍA GREENE MD Jan 25, 2023 22:57
== END 2023-01-25 22:59 | disposition home or self-care (01) ==
LOC: EDUNIT# 22:25 → ER 22:29
DX: O9A.212 Injury, poisoning and certain other consequences of external causes complicating pregnancy, second trimester (principal); M25.562 Pain in left knee; R10.9 Unspecified abdominal pain; Z90.49 Acquired absence of other specified parts of digestive tract; Z91.040 Latex allergy status; Z3A.16 16 weeks gestation of pregnancy; W01.198A Fall on same level from slipping, tripping and stumbling with subsequent striking against other object, initial encounter

== ENCOUNTER 2023-02-03 16:23 | Emergency (ER) | payer MEDICAID ==
[~2023-02-03] VITALS: Ht 154.9 cm; Wt 98.9 kg
[2023-02-03 16:27] VITALS: BP 159/92
[2023-02-03] MEDS ORDERED: OFLO5DRO8 OP (16:42)
--- NOTE | 2023-02-03 16:43 | ED EENT ---
History of Present Illness General Chief Complaint: General Problems/Pain Stated Complaint: SWOLLEN FACE, POSS EAR INFECTION IN LT EAR Nursing Triage Note: PT AMBULATE TO ROOM 06 WITHOUT DIFFICULTY WITH C/O LEFT EAR PAIN AND SWELLING STARTING THIS MORNING. Source: patient Exam Limitations: no limitations History of Present Illness Date Seen by Provider: Feb 03, 2023 Time Seen by Provider: 16:27 Initial Comments 37-year-old female presents to the ER with complaints of swelling in front of her left ear starting this morning. She states that her left ear hurt yesterday, states it does not hurt today. She reports she has a history of otitis externa. She denies any dental pain. She is currently 18 weeks . Denies fevers. Allergies and Home Medications Allergies Coded Allergies: adhesive (Verified Allergy, Unknown, 06/28/22) cephalexin (Unverified Allergy, Unknown, swelling all over, 04/28/21) latex (Verified Allergy, Unknown, 06/28/22) Patient Home Medication List Home Medication List Reviewed: Yes Buspirone HCl (Buspirone HCl) 15 Mg Tablet, (Reported) Entered as Reported by: TIFFANY ROBLEDO on 01/18/2214 Gabapentin (Gabapentin) 800 Mg Tablet, (Reported) Entered as Reported by: TIFFANY ROBLEDO on 01/18/2214 Hydroxyzine HCl (Hydroxyzine HCl) 50 Mg Tablet, (Reported) Entered as Reported by: TIFFANY ROBLEDO on 01/18/2214 Ibuprofen (Ibuprofen) 800 Mg Tablet, 800 MG PO Q6H PRN for PAIN Prescribed by: STEVIE BROCK on 08/09/222104 [place] Carbonate ([place] Carbonate) 300 Mg Tablet, (Reported) Entered as Reported by: TIFFANY ROBLEDO on 01/18/2214 Lurasidone HCl (Latuda) 40 Mg Tablet, (Reported) Entered as Reported by: TIFFANY ROBLEDO on 01/18/2214 Mirtazapine (Mirtazapine) 7.5 Mg Tablet, (Reported) Entered as Reported by: TIFFANY ROBLEDO on 01/18/2214 Naproxen (Naproxen) 500 Mg Tablet.dr, 500 MG PO BID Prescribed by: CHLOE OCHOA on 01/18/2227 Ofloxacin (Ofloxacin) 0.3 % Drops, 10 DROPS OP DAILY Prescribed by: Suzanne Evans on 02/03/23 1642 Prazosin HCl (Prazosin HCl) 1 Mg Capsule, (Reported) Entered as Reported by: TIFFANY ROBLEDO on 01/18/22 001 Sertraline HCl (Sertraline HCl) 100 Mg Tablet, (Reported) Entered as Reported by: TIFFANY ROBLEDO on 01/18/2214 Review of Systems Review of Systems Constitutional: see HPI Past Ozewvdh-Grivhw-Eswpkd Hx Patient Social History Tobacco Use?: No Smoking Status: Former Smoker Smokeless Tobacco Frequency: Never a User Use of E-Cig and/or Vaping dev: No Use of E-Cig and/or Vaping Hema: Never a User Substance use?: No Alcohol Use?: No Pt feels they are or have been: No Immunizations Up To Date First/Initial COVID19 Vaccinat: x1 Second COVID19 Vaccination Arcenio: x1 Third COVID19 Vaccination Date: x1 Past Medical History Surgery/Hospitalization HX: ANXIETY, INSOMNIA, bipolar, borderline personality disorder. c-sect x2, dental, cholecystectomy Surgeries: Yes Section, Gallbladder Respiratory: No Cardiac: No Neurological: No Genitourinary: No Gastrointestinal: No Musculoskeletal: No Endocrine: No HEENT: Yes (DENTAL ISSUES) Cancer: No Psychosocial: Yes Anxiety, Bipolar, Personality Disorder, Depression Family Medical History No Pertinent Family Hx Physical Exam Vital Signs Vital Signs - First Documented 02/03/23 16:27 Temp 37.7 Pulse 98 Resp 17 B/P (MAP) 159/92 (114) O2 Delivery Room Air Height, Weight, BMI Height: '" Weight: lbs. oz. kg; 41.00 BMI Method: General Appearance: WD/WN, no apparent distress Ears: right ear auricle normal, right ear canal normal, right ear TM normal; left ear erythema, left ear tenderness, left ear TM dull, left ear other (Very mild swelling in front of left ear, tenderness to palpation. No tenderness to palpation of mastoid bones) Mouth/Throat: No dental tenderness, No mandibular swelling; other (Multiple b roken teeth, multiple dental caries) Neck: supple, normal inspection Cardiovascular: regular rate, rhythm Respiratory: lungs clear, normal breath sounds, no respiratory distress, no accessory muscle use Neurologic/Psychiatric: alert, normal mood/affect Skin: normal color, warm/dry Progress/Results/Core Measures Results/Orders Vital Signs/I&O 02/03/23 16:27 Temp 37.7 Pulse 98 Resp 17 B/P (MAP) 159/92 (114) O2 Delivery Room Air Blood Pressure Mean: 114 Progress Progress Note : Progress Note Patient seen and evaluated, resting comfortably in bed, no acute stress. Based on exam and symptoms, this is likely otitis externa. There is no current discharge, but canal appears erythemic. TM appears dull, landmarks are visible. Will discharge with prescription for ofloxacin. Discharge instructions and return precautions provided. Departure Impression Primary Impression: Otitis externa Disposition: HOME, SELF-CARE Condition: Stable Departure-Patient Inst. Decision time for Depature: 16:41 Referrals: NO,LOCAL PHYSICIAN (PCP/Family) Primary Care Physician Patient Instructions: Outer Ear Infection (DC) Add. Discharge Instructions: Use 10 drops of the antibiotic eardrops in your left ear once a day for 7 days. Follow-up with your primary care provider symptoms do not improve after you complete the antibiotic. Return for any new, concerning, or worsening symptoms. All discharge instructions reviewed with patient and/or family. Voiced understanding. Scripts Ofloxacin (Ofloxacin) 0.3 % Drops 10 DROPS OP DAILY for 7 Days, #1 5ML 0 Refills Prov: SUZANNE JOHN APRN 02/03/23 Work/School Note: Work Release Form Date Seen in the Emergency Department: Feb 03, 2023 Return to Work: Feb 04, 2023 Restrictions: No Restrictions SUZANNE JOHN APRN Feb 03, 2023 16:43
== END 2023-02-03 16:48 | disposition home or self-care (01) ==
LOC: EDUNIT# 16:23 → ER 16:25
DX: O99.891 Other specified diseases and conditions complicating pregnancy (principal); H60.92 Unspecified otitis externa, left ear; Z91.040 Latex allergy status; Z3A.18 18 weeks gestation of pregnancy; Z88.1 Allergy status to other antibiotic agents
CPT/HCPCS: 99281